=== PATIENT | male | born 1940 | race Caucasian/White ===

== ENCOUNTER 2020-04-05 15:18 | Outpatient (CLI) | payer MEDICARE, OTHER, SELFPAY ==
--- NOTE | ~2020-04-05 | CT_ITS ---
EXAMINATION: CT abdomen pelvis w con DATE: 04/05/2020 15:55 INDICATION: Malignant neoplasm of transverse colon. TECHNIQUE: Computed tomography (CT) of the abdomen and pelvis was performed with 100 mL of Omnipaque 350 intravenous contrast. Automated exposure control and iterative reconstruction technique were empl oyed. The dose-length product was 405.91 mGy-cm. COMPARISON: CT abdomen and pelvis 03/17/2018 FINDINGS: The visualized portions of the lung bases demonstrate mild atelectasis. No pleural effusion . Cardiomegaly is noted. There are changes of mitral valve replacement. There are calcifications of t he aortic valve and coronary arteries. No pericardial effusion. There is a 1.9 x 0.9 cm hyperenhancin g mass in segment VIII of the liver. The gallbladder, spleen, pancreas, and adrenal glands are normal . There are cysts in the kidneys measuring up to 7.1 cm on the left. The prostate is mildly enlarged. There are no dilated loops of bowel. There are changes of right hemicolectomy. There is a small slid ing hiatal hernia. There are no pathologically enlarged lymph nodes. There are bilateral inguinal her nias containing fat. There is no free intraperitoneal fluid. There is mild lumbar spondylosis. There are bridging endplate osteophytes at multiple levels in the thoracic spine, consistent with diffuse i diopathic skeletal hyperostosis (DISH). IMPRESSION: 1. No specific evidence of metastatic disease. 2. 1.9 x 0.9 cm hyperenhancing liver mass, increased in size from 1.1 x 0.7 cm on 03/17/18. This find ing is most likely focal nodular hyperplasia, hemangioma, or transient hepatic attenuation difference (DEVYN). Abdomen MRI without and with contrast is recommended. Reviewed, dictated and finalized at location A. ALS COLLECTOR/ANALYST IMPRESSION: 1. No specific evidence of metastatic disease. 2. 1.9 x 0.9 cm hyperenhancing liver mass, increased in size from 1.1 x 0.7 cm on 03/17/18. This finding is most likely focal nodular hyperplasia, hemangioma, or transient hepatic attenuation difference (DEVYN). Abdomen MRI without and wi th contrast is recommended.
== END 2020-04-05 15:19 | disposition home or self-care (01) ==
PROVIDERS: PCP Family Medicine; Visit Provider Internal Medicine Hematology & Oncology
DX: C18.9 Malignant neoplasm of colon, unspecified (principal); I25.10 Atherosclerotic heart disease of native coronary artery without angina pectoris; N28.1 Cyst of kidney, acquired; N40.0 Benign prostatic hyperplasia without lower urinary tract symptoms; K44.9 Diaphragmatic hernia without obstruction or gangrene; M47.816 Spondylosis without myelopathy or radiculopathy, lumbar region; K40.20 Bilateral inguinal hernia, without obstruction or gangrene, not specified as recurrent; I70.0 Atherosclerosis of aorta; R16.0 Hepatomegaly, not elsewhere classified
CPT/HCPCS: 74177; Q9967

== ENCOUNTER 2020-04-11 16:18 | Outpatient (CLI) | payer MEDICARE, OTHER, SELFPAY ==
--- NOTE | ~2020-04-11 | MR_ITS ---
EXAMINATION: MR abdomen wo/w con INDICATION: Indeterminate liver mass on recent CT TECHNIQUE: Coronal SSFSE ARC, WATER:coronal LAVA-FLEX, Coronal 2D FIESTA FatSat, Axial SSFSE BH ARC, Axial 3D DualEcho BH, Axial SSFSE-IR, Axial DWI b=500, Axial 2D FIESTA FatSat, pre and dynamic postco ntrast Axial LAVA ARC, postcontrast Coronal In and Opposed phase LAVA FLEX COMPARISON: CT, 04/05/2020 CONTRAST: Multihance, 15 cc FINDINGS: Many sequences are significantly limited by respiratory motion artifact, including postcont rast sequences. The enhancing lesion in liver segment VIII described on recent CT again appears to de monstrate arterial enhancement and remain isointense to liver on the remaining sequences. There is no associated restricted diffusion. The spleen, pancreas, gallbladder, and adrenal glands are normal. C ysts of the kidneys measure up to 8.1 cm on the left. There are no pathologically enlarged abdominal lymph nodes. No dilated loops of bowel are evident. IMPRESSION: 1. Enhancing lesion in liver segment VIII, likely focal nodular hyperplasia or hemangioma, examinatio n significantly limited by respiratory motion artifact. Reviewed, dictated and finalized at location A. CAL SALES ASSOCIATE IMPRESSION: 1. Enhancing lesion in liver segment VIII, likely focal nodular hyperplasia or hemangioma, examination significantly limited by respiratory motion artifact.
== END 2020-04-11 16:19 | disposition home or self-care (01) ==
PROVIDERS: PCP Family Medicine; Visit Provider Internal Medicine Hematology & Oncology
DX: K76.9 Liver disease, unspecified (principal)
CPT/HCPCS: 74183; A9577

== ENCOUNTER 2021-04-09 07:59 | Outpatient (CLI) | payer MEDICARE, SELFPAY ==
--- NOTE | ~2021-04-09 | CT_ITS ---
EXAMINATION: CT abdomen pelvis w con DATE: 04/09/2021 08:50 INDICATION: Malignant neoplasm of the transverse colon. TECHNIQUE: Computed tomography (CT) of the abdomen and pelvis was performed with 100 mL Omnipaque-350 intravenous contrast. Automated exposure control and iterative reconstruction technique were employe d. The dose-length product was 416.64 mGy-cm. COMPARISON: 04/05/2020 and 04/11/2020 FINDINGS: Minimal dependent atelectasis in the bilateral lower lobes. Cardiomegaly. Atherosclerotic coronary ar lacho calcific location. Median sternotomy wires and mitral valve repair. Aortic valve calcification. No pericardial or pleural effusion. Again seen is a subtle approximately 1 cm hyperenhancing focus in segment 8 of the liver was similar hyper enhancement on the earliest postcontrast image of the prior MRI but appearing isointense to the surrounding liver on the remaining sequences including the delay ed postcontrast images which be most consistent with either transient hepatic attenuation/intensity d ifference or focal nodular hyperplasia. No other hepatic lesions identified. Gallbladder, spleen, karimi creas and bilateral adrenal glands are normal. Bilateral renal cysts measuring up to 1.2 cm at the ri ght kidney and 9.3 cm the left kidney. Right hemicolectomy with ileocolic anastomosis in the left upp er quadrant along the distal transverse colon. No bowel obstruction. Bladder is unremarkable. Prostat omegaly. Small bilateral fat-containing inguinal hernias. No free intraperitoneal gas or fluid. No pa thologically enlarged abdominal or pelvic lymphadenopathy. There is calcified atherosclerosis of the aorta and many of the other arteries. Mild thoracolumbar spondylosis with bridging osteophytes at mul tiple levels in the lower thoracic spine, consistent with diffuse idiopathic skeletal hyperostosis (D PRESTON). IMPRESSION: 1. Unchanged small ill-defined hyperenhancing lesion in segment 8 of the liver with prior MRI finding s favoring either focal nodular hyperplasia or transient hepatic attenuation/intensity difference. 2. Status post right hemicolectomy with ileocolic anastomosis. No evident metastatic disease. Reviewed, dictated and finalized at location B. RAL AGENT IMPRESSION: 1. Unchanged small ill-defined hyperenhancing lesion in segment 8 of the liver with prior MRI findings favoring either focal nodular hyperplasia or transient hepatic attenuation/intensity difference. 2. Status post right hemicolectomy with ileocolic anastomosis. No evident metas tatic disease.
[2021-04-09 08:34] LABS: Estimated Glomerular Filt Rate > 60
== END 2021-04-09 08:00 | disposition home or self-care (01) ==
LOC: ANHIMG 08:06
PROVIDERS: PCP Family Medicine; Visit Provider Internal Medicine Hematology & Oncology
DX: C18.4 Malignant neoplasm of transverse colon (principal)
CPT/HCPCS: 74177; Q9967

== ENCOUNTER 2021-10-11 09:17 | Outpatient (CLI) | payer MEDICARE, SELFPAY ==
--- NOTE | 2021-10-11 09:21 | ECG_ITS ---
Measurements Intervals [place] Rate: 81 P: MA: 0 QRS: -6 QRSD: 90 T: 21 QT: 408 QTc: 476 Interpretive Statements ATRIAL FIBRILLATION ABNORMAL RHYTHM ECG NO PREVIOUS ECG AVAILABLE FOR COMPARISON Electronically Signed On 10-11-2021 20:34:32 CDT by Michaela Caruso M.D.
[2021-10-11 09:51] LABS: Basophils Absolute Auto 0.3 K/mm3 (0.0-0.1); Basophils Percent Auto 2.1 % (0.2-1.2); Eosinophils Absolute Auto 0.5 K/mm3 (0-0.3); Eosinophils Percent Auto 3.5 % (0-4.4); Hematocrit 46.4 % (42.0-52.0); Hemoglobin 14.1 g/dL (14.0-18.0); Immature Granulocyte Absolute 0.07 K/mm3 (0.00-0.031); Immature Granulocyte Percent A 0.5 % (0-0.5); Lymphocytes Absolute Auto 1.69 K/mm3 (0.9-3.2); Mean Corpuscular HGB Conc 30.4 g/dl (32-36); Mean Corpuscular Hemoglobin 22.5 pg (26-34); Mean Platelet Volume 10.5 fl (7.4-10.4); Monocytes Percent Auto 7.7 % (2.6-8.5); Neutrophils Absolute Auto 9.5 K/mm3 (1.3-6.7); Neutrophils Percent Auto 73.2 % (45.5-73.1); Platelet Count Result 522 k/mm3 (150-375); Red Blood Count 6.27 M/mm3 (4.6-6.20); Red Cell Distribution Width 19.5 % (11.5-14.5)
[2021-10-11 10:00] LABS: Anion Gap 10 mmol/L (8-16); Blood Urea Nitrogen 30 mg/dL (9-20); Calcium 9.3 mg/dL (8.4-10.2); Carbon Dioxide 23 mmol/L (22-30); Chloride 102 mmol/L (98-107); Estimated Glomerular Filt Rate 58; Glucose 95 mg/dL (65-110); Potassium 4.8 mmol/L (3.4-5.0); Sodium 135 mmol/L (137-145)
== END 2021-10-11 09:18 | disposition home or self-care (01) ==
LOC: ANHSURGERY 09:21
PROVIDERS: PCP Family Medicine; Visit Provider Surgery
DX: K62.1 Rectal polyp (principal); I10 Essential (primary) hypertension; Z01.818 Encounter for other preprocedural examination; I48.91 Unspecified atrial fibrillation
CPT/HCPCS: 36415; 80048; 85025; 93005

== ENCOUNTER 2021-10-18 13:52 | Inpatient (IN) | payer MEDICARE, SELFPAY ==
[2021-10-09 13:21] VITALS: BMI 23.8
--- NOTE | 2021-10-09 13:44 | PC.NURSE ---
Report to the Outpatient Waiting Room, entrance under the green pavilion located off [facility], at time _1030_ on date __10/17/21 . OR Time: _1230_. - You and your visitor will be asked a series of questions to screen for COVID 19 for your protection. - Only one visitor is allowed at this time. - The patient visitor is requested to leave or wait in car when not with patient. - A mask is required within the hospital. Patients may have clear liquids (water, carbonated beverages, clear teas, apple juice) until 3 hours prior to surgery (0930 AM) with a maximum of 20 ounces. - No food from midnight until time of surgery Take the following medications with a SIP of water the morning of surgery: _AMLODIPINE, DONEPEZIL, MEMANTINE, METOPROLOL_ Medications to discontinue per DR. VAHID ABERNATHY 2 DAYS PRIOR TO SURGERY, Date to take last dose 10/14/21_ Please no make-up, nail arabic, hairspray, perfume, deodorant, or body powder the day of surgery. No jewelry (including any body piercings) or valuables the day of surgery, leave them at home. Please take a shower or bath the night before, or the morning of, surgery with an antibacterial soap. Wear comfortable, loose fitting clothing. - Jewelry must be removed prior to entering the operating room. Rings and piercings that are not removed may be cut off. - The hospital will not accept responsibility for valuables. - Please leave all valuables, including medications, at home the day of surgery. If you are going home after surgery, a licensed emergency detail driver must drive you home. - NO public transportation without another adult. - We recommend that an adult stay with you for 24 hours following discharge. - We also recommend that you do not drive, make important decision, drink alcoholic beverages, or take any drugs that were not prescribed by your health care provider for at least 24 hours after your discharge time. Follow any additional instructions given to you from your surgeon. FLEETS ENEMA NIGHT BEFORE AND AM OF SURGERY, IF NOT TOO PAINFUL, DULCOLAX 5GM TAB NIGHT BEFORE SURGERY - CALL DR. THAPA OFFICE TO CONFIRM [phone] If you or anyone in your household have experienced Covid symptoms in the past week, please notify your surgeon or the nurse liaison at the phone number below for possible testing. Telephone instructions given to _PT'S SPOUSE - KASI___and asked if any additional questions and then verbalized understanding. Patient advised to call surgeon office or pre surgery nurse liaison [phone] if any additional questions.
--- NOTE | 2021-10-16 09:30 | WPDANESEPPF ---
Anes - Initial Pre Proc Eval Procedure: Operation Date: 10/17/21 08:00 Proposed Procedures p Transanal Excision of Rectal Polyp - Anirudh Wilson MD <Franklyn Bacon DO - Last Filed: 10/25/21 09:05> Date/Time: 10/16/21 09:30 <Franklyn Bacon DO - Last Filed: 10/25/21 09:05> Surgeon: Anirudh Wilson MD <Franklyn Bacon DO - Last Filed: 10/25/21 09:05> Pre Op Diagnosis: rectal polyp <Franklyn Bacon DO - Last Filed: 10/25/21 09:05> Patient Data Age: 81 Gender: M Height: 1.7 m Weight: 69.09 kg <Franklyn Bacon DO - Last Filed: 10/25/21 09:05> Allergies Allergy/AdvReac Type Severity Reaction Status Date / Time No Known Allergies Allergy Verified 10/23/21 19:41 <Franklyn Bacon DO - Last Filed: 10/25/21 09:05> Home Medications Medication Instructions Recorded Confirmed Type apixaban 5 mg tablet (Eliquis) 5 mg PO BID 09/26/21 10/23/21 History aspirin 81 mg tablet,delayed 81 mg PO HS 09/26/21 10/23/21 History release (Adult Low Dose Aspirin) cholestyramine (with sugar) 4 gram See Rx Instructions .Route .COMPLEX 09/26/21 10/23/21 History oral powder cyanocobalamin (vitamin B-12) 1,000 mcg PO BID 09/26/21 10/23/21 History 1,000 mcg capsule donepezil 10 mg tablet 10 mg PO QAM 09/26/21 10/23/21 History metoprolol tartrate 50 mg tablet 50 mg PO BID 09/26/21 10/23/21 History pravastatin 40 mg tablet 40 mg PO HS 09/26/21 10/23/21 History memantine 10 mg tablet 10 mg PO BID 10/09/21 10/23/21 History diltiazem HCl 180 mg 180 mg PO QAM #30 caps 10/20/21 10/23/21 Rx capsule,extended release 24 hr, controlled hydrocodone 5 mg-acetaminophen 325 1 tablet PO Q6H PRN pain #20 tabs 10/20/21 10/23/21 Rx mg tablet lisinopril 20 mg tablet 20 mg PO QAM 10/20/21 10/23/21 Rx amlodipine 5 mg tablet 1 tablet PO BID 10/23/21 10/23/21 History <Franklyn Bacon DO - Last Filed: 10/25/21 09:05> ECG: Date of Service: 10/11/21 Procedure(s): CA 12 lead EKG Accession Number(s): [id number] cc: ~ ? Measurements Intervals? [place]? Rate: ? 81 ? P:? [place]: ? 0? QRS:? -6 QRSD: ? 90 ? T:? 21 QT: ? 408? QTc:? 476? Interpretive Statements ATRIAL FIBRILLATION ABNORMAL RHYTHM ECG NO PREVIOUS ECG AVAILABLE FOR COMPARISON Electronically Signed On 10-11-2021 20:34:32 CDT by Michaela Caruso M.D. <Mane Montes MD - Last Filed: 10/17/21 07:15> Patient hx anesthesia problems: none <Franklyn Bacon DO - Last Filed: 10/25/21 09:05> Family hx anesthesia problems: none <Franklyn Bacon DO - Last Filed: 10/25/21 09:05> Results Review: All pre-operative results and documents have been reviewed as part of the pre-operative evaluation. 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
[2021-10-17] VITALS (18 sets, daily range): BP systolic 91–126; BP diastolic 60–87; PULSE 76–129; RESP 10–20; TEMP 35.6–36.6; O2SAT 93–100
--- NOTE | 2021-10-17 08:24 | WPDHPUPDATE1 ---
History and Physical Update Update Date/Time: 10/17/21 08:24 History and Physical has been reviewed, including an updated exam of the patient. There are NO changes in the patient's condition. Risks, benefits, and alternatives have been discussed and questions answered. Patient agrees to proceed with procedure.
[2021-10-17] MEDS: LACTATED RINGERS 1,000 ML 30 ML IV CONT ×2 (11:10→14:09)
[2021-10-17] MEDS: ACETAMINOPHEN 500 MG TABLET 1000 MG PO (11:14)
[2021-10-17] MEDS: KETOROLAC 15 MG/ML VIAL (*BKC) IV PUSH (11:14)
[2021-10-17] MEDS: ceFAZolin 2 GM/D5W 50 ML 2 GM/50 ML BAG IVPB (12:20)
[2021-10-17] MEDS: LIDO 1%/EPINEPHRINE/PF 1:200,000 30 ML VIAL 60 ML XX (13:47)
[2021-10-17] MEDS: ESMOLOL HCL 100 MG/10 ML VIAL 30 MG IV PUSH (14:03)
--- NOTE | 2021-10-17 14:25 | W.PM.PROC2 ---
Procedure Note - Detailed Date of Procedure 10/17/21 Pre-op Diagnosis rectal polyp Post-op Diagnosis Same Procedure Performed Transanal excision of large rectal polyp Surgeon Anirudh Wilson MD Sexual Assault Counsellor Deyanira EVANGELISTA Anesthesia General and Local (1% lidocaine with epinephrine) Indications Patient is an 81-year-old man with dementia and cardiac disease. Had a recent colonoscopy he was found to have a distal rectal polyp that was associated with internal hemorrhoids. It was unable to be excised colonoscopically. He was seen in the office and on exam found to have a left lateral polyp. Biopsies at colonoscopy showed an adenomatous polyp. He is taken to surgery now for transanal excision. Findings The polyp was considerably bigger than I appreciated at the office visit. It occupied about a 3rd of the rectal circumference and extended cephalad about 7 cm. The polyp was excised in 2 pieces. Proctosigmoidoscopy was done at the conclusion of the procedure and showed the excision to extend to 7 cm. Proctosigmoidoscopy to over 20 cm was otherwise negative. Description of Procedure Patient was taken to surgery and induced into general anesthesia. He was then placed in prone ailyn-knife position. The buttocks were taped apart. Prep and drape was carried out. Hill-[place] anoscope was introduced into the rectum and the area of the polyp in the left lateral position as expected was noted. It appeared to be adequate for excision. I infiltrated local anesthetic using 1% lidocaine with epinephrine. 20 cc deep subdermal and 20 cc intra sphincteric were administered. Internal hemorrhoids were near the polyp as described in the colonoscopy. On beginning the excision, a 3-0 chromic suture was placed at the distal extent of the polyp. I proceeded with excising the polyp retracting the polyp with hemorrhoidal graspers to expose normal mucosa. I excised through the level of the mucosa taking little or no muscle and continued the excision. Eventually I excised this area of the polyp. On looking back in the rectum, it now appeared that there was a more proximal portion of the polyp that also extended farther to the left around the circumference of the rectum. I retracted this portion of the polyp and placed another suture at the proximal extent. This was also 3-0 chromic. Who with traction on the polyp towards the lumen of rectum, a submucosal plane was established with the cautery and the remainder of the polyp was carefully dissected from the rectum. It appeared we removed the entire polyp. I placed 1 or 2 additional suture to control some venous bleeding. Further reviewing the rectum, it did not appear that I could safely close the mucosa from the polypectomy without risk of stricture. I removed the chromic suture and reach checked for bleeding. There was none. I then used a rigid proctoscope and placed this in the rectum. Insufflating with air I carefully advanced the proctoscope to its full extent of over 20 cm. Some liquid stool was noted in the upper rectum. This was suctioned away. I then carefully withdrew the proctoscope. The excision appeared to extend to 7 cm in the rectum. I reviewed the area of the excision and saw no sign of perirectal fat or other untoward event. The proctoscope was eventually completely withdrawn. It appeared the entire polyp had been removed. I again looked with a Francis-Moshe anoscope and saw no sign of rectal bleeding. A Xeroform gauze 5 in x 9 in was placed over the rectum as well as fluffs. This was taped with Medipore tape. The patient was returned to a supine position. He was awakened and extubated. He was transferred to recovery in good condition. Sponge and needle counts were correct x2. Estimated Blood Loss -50.0 Drains No Packing No Pathology Yes (Rectal polyp) Complications No immediate complications Condition Stable Disposition PACU [facility] Billing Surgery - Charge Forward: Surgery Billing ([facility]
[2021-10-17] MEDS: METOPROLOL TARTRATE INJ 5 MG/5 ML VIAL 2 MG IV PUSH (14:40)
--- NOTE | 2021-10-17 16:06 | PC.NURSE ---
This patient, Erik Davis, was admitted to Medical Room 254-01. Patient/family oriented to hospital policies and general routines including ID bracelet, bed and alarms, visiting hours, pain management, procedures, bathroom and other care routines, personal items, smoking policy, room service/diet, and visiting hours. Information on how to activate the Rapid Response Team has been discussed. Patient/Family are encouraged to report perceived risks to care and to ask questions if they do not understand what they are told or what they should do.
[2021-10-17] MEDS: MINERAL OIL 30 ML UDC 15 ML PO (17:19)
[2021-10-17] MEDS: MEMANTINE 10 MG TABLET PO (17:20)
[2021-10-17] MEDS: CYANOCOBALAMIN 1,000 MCG TABLET 1000 MCG PO (17:20)
[2021-10-17] MEDS: HYDROcodone/acetaminophen (*CRX) 5-325 MG TABLET 1 TAB PO (17:36)
[2021-10-17] MEDS: ASPIRIN 81 MG ENTERIC TABLET PO (20:12)
[2021-10-17] MEDS: METOPROLOL TARTRATE 50 MG TAB PO (20:12)
[2021-10-17] MEDS: PRAVASTATIN SODIUM 20 MG TABLET 40 MG PO (20:12)
[2021-10-17] MEDS: fentaNYL CITRATE INJ (*CRX) 100 MCG/2 ML VIAL 25 MCG IV PUSH (20:18)
[2021-10-18] VITALS (11 sets, daily range): BP systolic 86–110; BP diastolic 52–66; PULSE 62–110; RESP 16–18; TEMP 36.5–36.9; O2SAT 95–98; BMI 21.1
[2021-10-18] MEDS: DEXTROSE 5%/LACTATED RINGERS 1,000 ML 80 ML IV CONT ×2 (00:21→16:13)
[2021-10-18 05:37] LABS: Hematocrit 40.4 % (42.0-52.0); Mean Corpuscular HGB Conc 29.7 g/dl (32-36); Mean Corpuscular Hemoglobin 22.3 pg (26-34); Mean Platelet Volume 10.7 fl (7.4-10.4); Platelet Count Result 450 k/mm3 (150-375); Red Blood Count 5.39 M/mm3 (4.6-6.20); Red Cell Distribution Width 18.9 % (11.5-14.5); White Blood Count 20.6 K/mm3 (4.5-10.0)
[2021-10-18 05:47] LABS: Anion Gap 7 mmol/L (8-16); Blood Urea Nitrogen 27 mg/dL (9-20); Calcium 8.4 mg/dL (8.4-10.2); Carbon Dioxide 24 mmol/L (22-30); Chloride 102 mmol/L (98-107); Estimated CRCL calculation 35 ml/min; Estimated Glomerular Filt Rate 53; Glucose 121 mg/dL (65-110); Sodium 133 mmol/L (137-145)
--- NOTE | 2021-10-18 07:41 | PM.IMCN ---
Assessment and Plan Assessment and plan (1) History of coronary artery bypass graft: Code(s): Z95.1 - Presence of aortocoronary bypass graft Status: Acute Assessment and Plan: -stable (2) Hypertension: Code(s): I10 - Essential (primary) hypertension Status: Acute Assessment and Plan: --medications currently on hold due to the patient's blood pressure being 86/54, will administer 500 cc normal saline bolus. (3) FDC current use of anticoagulant: Code(s): Z79.01 - terminal carman (current) use of anticoagulants Status: Acute Assessment and Plan: defer anticoagulation to Surgery , hold anticoagulation for now (4) Rectal polyp: Code(s): K62.1 - Rectal polyp Status: Acute Assessment and Plan: Rectal polyp was excised Continue to monitor, currently is are from gauze 5 in by 9 in and she is placed over the rectum Patient reports significant amount of blood per rectum this morning. Will obtain a stat H&H. (5) Cancer of transverse colon: Code(s): C18.4 - Malignant neoplasm of transverse colon Status: Acute Assessment and Plan: 2/ above (6) Chronic atrial fibrillation: Code(s): I48.20 - Chronic atrial fibrillation, unspecified Status: Acute Assessment and Plan: Continue home medications Defer anticoagulation therapy to surgery after her surgical intervention for a rectal polyp removal Additional Plan Hold anticoagulation such as Lovenox and apixaban. Place patient on SCDs for DVT prophylaxis. HPI Data of Consult Consult date: 10/18/21 Requesting Physician: Anirudh Wilson MD Primary Care Provider: Radha Suarez MD Consult Narrative Narrative: Erik Davis is a 81 year old male with a past medical history paroxysmal AFib, hypertension, CABG with mitral valve replacement and hyperlipidemia. Patient recently had a colonoscopy which showed some transverse colon cancer. Biopsies confirmed. Patient had a polyp that was unable to be excised colonoscopy. He was examined in gastroenterology office and was found to have a left lateral Brnadie. Patient was therefore suggested have surgery for a transanal excision. While in surgery the polyp was considerably larger. Hospitalist service was consulted due to the patient's comorbidities for medical management. Patient was hypotensive this morning his antihypertensives were held. Eliquis is currently on hold. Hold his Lovenox. Patient reported significant amount of bright red blood per rectum this morning. Although the patient does have rectal surgery. Will obtain a stat H&H to the patient's decreasing hemoglobin, decreasing blood pressure and mild tachycardia. Patient will receive 500 cc of normal saline as well. Review of Systems Review of Systems: General: No acute distress. Mental Status: Awake, alert and oriented to person, place, and time with clear speech. Skin: Skin in warm, dry and intact without rashes or lesions. Head: Normocephalic and atraumatic. Eyes: Conjunctivae are clear without exudates or hemorrhage. Sclera is non-icteric. EOM are intact, PERRLA. Ears: The external ear and canal are non-tender and without swelling or discharge. Nose: Nasal mucosa is pink and moist. Septum midline. Nares patent bilaterally. Throat: Oral mucosa pink and moist with good dentition. Tongue midline. Neck: The neck supple without adenopathy. Trachea midline. No JVD. Cardiac: S1 and S2 regular rate and rhythm. No murmurs, gallops, or rubs auscultated. Respiratory: Chest wall symmetric, nontender and without deformity or trauma. Respirations even and unlabored. Lung sounds are clear to auscultation in all lobes bilaterally without wheezes, rhonchi, or rales. Abdominal: Abdomen soft, round and non-tender to palpation. Bowel sounds present and normoactive in all 4 quadrants. Spine: Neck and back with grossly normal curvature, no deformity in appearance or signs of trauma. E
[2021-10-18] MEDS: DONEPEZIL HCL 10 MG TABLET PO (08:40)
[2021-10-18] MEDS: ENOXAPARIN 40 MG/0.4 ML SYRINGE SUB-Q (08:40)
[2021-10-18] MEDS: MINERAL OIL 30 ML UDC 15 ML PO ×2 (08:40→16:14)
[2021-10-18] MEDS: CYANOCOBALAMIN 1,000 MCG TABLET 1000 MCG PO ×2 (08:40→16:14)
[2021-10-18] MEDS: MEMANTINE 10 MG TABLET PO ×2 (08:40→16:14)
[2021-10-18 09:23] LABS: Hematocrit 38.8 % (42.0-52.0); Hemoglobin 11.9 g/dL (14.0-18.0)
[2021-10-18] MEDS: SODIUM CHLORIDE 0.9% IV 500 ML IV CONT (09:24)
--- NOTE | 2021-10-18 09:29 | PM.PNGS ---
Progress Note: A&P Assessment and Plan (1) Rectal polyp: Code(s): K62.1 - Rectal polyp Status: Acute Assessment and Plan: Found to have a large rectal polyp yesterday during surgery that was excised. He has been admitted post-operatively to monitor. He has had some bloody BMs overnight, which seems to be improving. Blood pressure was low this morning. BP meds were held and he was given 500 cc IV fluid bolus. H/H rechecked and remains stable at 11.9. Continue to closely monitor. Repeat labs tomorrow. 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 (4) Hypertension: Code(s): I10 - Essential (primary) hypertension Status: Acute Plan I have discussed the patient's case and plan of care with Dr. Wilson. Subjective Subjective Date/Time Seen: 10/18/21 09:29 Post Op day: 1 (Transanal excision of large rectal polyp) Patient reports: pain is less, tolerating liquids well, flatus, bowel movement (bloody BM last night and one this morning) and afebrile Interval history: Patient seen and examined. He reports having a bloody BM this morning right before I entered the room. No nausea or vomiting. Still with rectal pain but reportedly better than yesterday. Exam Const: General: comfortable and no acute distress Orientation/consciousness: patient oriented x3 GI: Inspection: non-distended GI Palp: Yes Soft to palpation, No Tenderness to palpation present (GI) and No Rebound tenderness present Rectal Exam: visual inspection normal (minimal serosanguineous drainage on dressing) Skin: General skin exam: normal color Neuro: General: moves all extremities and no focal motor deficits Extrem: General: no calf tenderness and no edema Psych: Insight: Fair insight present (Psych) Judgement: Fair judgement present (Psych) Objective Data Vital Signs Vital Signs: Vital Signs - 24 hr 10/17/21 11:31 10/17/21 13:55 10/17/21 14:10 Temperature 97.6 F 97.4 F L Pulse Rate 99 128 H 117 H Respiratory Rate 16 12 12 Blood Pressure 111/78 104/83 103/87 Pulse Oximetry 99 100 100 Oxygen Delivery Room Air Simple Face Mask Simple Face Mask Oxygen Flow Rate 8 8 10/17/21 14:25 10/17/21 14:40 10/17/21 14:55 Temperature Pulse Rate 109 H 106 H 109 H Respiratory Rate 16 13 10 L Blood Pressure 91/78 L 97/63 L 108/60 Pulse Oximetry 100 98 99 Oxygen Delivery Simple Face Mask Room Air Room Air Oxygen Flow Rate 8 10/17/21 15:10 10/17/21 15:30 10/17/21 16:10 Temperature 96.3 F L Pulse Rate 105 H 105 H 91 Respiratory Rate 15 20 16 Blood Pressure 106/78 101/71 96/73 L Pulse Oximetry 99 100 93 Oxygen Delivery Room Air Room Air Oxygen Flow Rate 10/17/21 16:19 10/17/21 16:53 10/17/21 17:16 Temperature 96.3 F L 96.1 F L Pulse Rate 94 76 126 H Respiratory Rate 16 16 Blood Pressure 120/74 110/74 Pulse Oximetry 99 96 Oxygen Delivery Oxygen Flow Rate 10/17/21 17:41 10/17/21 17:57 10/17/21 19:57 Temperature 96.7 F L 97.6 F Pulse Rate 102 H 100 107 H Respiratory Rate 16 18 Blood Pressure 126/68 109/61 Pulse Oximetry 99 96 Oxygen Delivery Oxygen Flow Rate 10/17/21 20:12 10/17/21 20:00 10/17/21 23:44 Temperature 97.8 F Pulse Rate 129 H 128 H 118 H Respiratory Rate 18 Blood Pressure 100/70 Pulse Oximetry 96 Oxygen Delivery Oxygen Flow Rate 10/18/21 00:00 10/18/21 04:00 10/18/21 06:44 Temperature 98.5 F Pulse Rate 94 103 H 86 Respiratory Rate 18 Blood Pressure 99/52 L Pulse Oximetry 98 Oxygen Delivery Oxygen Flow Rate 10/18/21 08:42 Temperature Pulse Rate Respiratory Rate Blood Pressure 86/54 L Pulse Oximetry Oxygen Delivery Oxygen Flow Rate Intake/Output
[2021-10-18] MEDS: ASPIRIN 81 MG ENTERIC TABLET PO (20:39)
[2021-10-18] MEDS: PRAVASTATIN SODIUM 20 MG TABLET 40 MG PO (20:39)
[2021-10-18] MEDS: CHOLESTYRAMINE (W/ SUGAR) 4 GM POWD.PACK PO (20:40)
[2021-10-19] VITALS (15 sets, daily range): BP systolic 98–133; BP diastolic 53–75; PULSE 79–167; RESP 14–18; TEMP 36.4–37.6; O2SAT 95–97
[2021-10-19 05:50] LABS: Hematocrit 34.7 % (42.0-52.0); Hemoglobin 10.3 g/dL (14.0-18.0); Mean Corpuscular HGB Conc 29.7 g/dl (32-36); Mean Corpuscular Hemoglobin 22.2 pg (26-34); Mean Corpuscular Volume 74.6 fl (80-100); Mean Platelet Volume 11.3 fl (7.4-10.4); Platelet Count Result 364 k/mm3 (150-375); Red Blood Count 4.65 M/mm3 (4.6-6.20); Red Cell Distribution Width 18.1 % (11.5-14.5); White Blood Count 16.3 K/mm3 (4.5-10.0)
[2021-10-19 06:04] LABS: Anion Gap 2 mmol/L (8-16); Blood Urea Nitrogen 24 mg/dL (9-20); Calcium 7.8 mg/dL (8.4-10.2); Carbon Dioxide 26 mmol/L (22-30); Chloride 103 mmol/L (98-107); Estimated CRCL calculation 44 ml/min; Estimated Glomerular Filt Rate > 60; Glucose 125 mg/dL (65-110); Potassium 3.9 mmol/L (3.4-5.0); Sodium 131 mmol/L (137-145)
[2021-10-19] MEDS: DEXTROSE 5%/LACTATED RINGERS 1,000 ML 80 ML IV CONT ×2 (06:28→20:44)
--- NOTE | 2021-10-19 06:44 | PM.IMCN ---
Assessment and Plan Assessment and plan (1) History of coronary artery bypass graft: Code(s): Z95.1 - Presence of aortocoronary bypass graft Status: Acute Assessment and Plan: -stable (2) Hypertension: Code(s): I10 - Essential (primary) hypertension Status: Acute Assessment and Plan: --medications currently on hold due to the patient's blood pressure being 86/54, will administer 500 cc normal saline bolus. (3) longterm current use of anticoagulant: Code(s): Z79.01 - termite treater (current) use of anticoagulants Status: Acute Assessment and Plan: defer anticoagulation to Surgery , hold anticoagulation for now (4) Rectal polyp: Code(s): K62.1 - Rectal polyp Status: Acute Assessment and Plan: Rectal polyp was excised Continue to monitor, currently is are from gauze 5 in by 9 in and she is placed over the rectum Patient reports significant amount of blood per rectum this morning. Hemoglobin hematocrit down turning, continue to monitor and hold anticoagulation Stat H&H, patient had a liquid bowel movement while I was in the room, hemoglobin does appear to be down trending (5) Cancer of transverse colon: Code(s): C18.4 - Malignant neoplasm of transverse colon Status: Acute Assessment and Plan: 2/2 above (6) Chronic atrial fibrillation: Code(s): I48.20 - Chronic atrial fibrillation, unspecified Status: Acute Assessment and Plan: Continue home medications Patient tachycardic this morning with heart rate 140s -150s at rest. Patient has p.r.n. metoprolol q.6 hours 5 mg to be administered for heart rate sustained of 120. Medication was not administered during the night. Consult cardiology for further recommendations, appreciate assistance Transfer patient to IMU Antihypertensives held due to hypotension Defer anticoagulation therapy to surgery after her surgical intervention for a rectal polyp removal Additional Plan Hold anticoagulation such as Lovenox and apixaban. Place patient on SCDs for DVT prophylaxis. HPI Data of Consult Consult date: 10/19/21 Requesting Physician: Anirudh Wilson MD Primary Care Provider: Radha Suarez MD Consult Narrative Reason for consult: Comorbidities Narrative: Erik Davis is a 81 year old male who was evaluated this morning. Upon arrival to the floor the patient was tachycardic at rest lying in bed with a heart rate 140s, 50s he denied any palpitations, dizziness, diaphoresis. The patient does have p.r.n. metoprolol to be administered if heart rate sustained greater than 120, this was not done. Requested the RN to push the IV medication at bedside. Patient's blood pressure 98/56. Hold antihypertensive and administer 500 cc bolus. Stat H&H. Consulted cardiology for further management, transfer patient to IMU, and called to notify General surgery about the patient's condition. Review of Systems Review of Systems: All systems reviewed & are unremarkable except as noted in HPI and below PMFSH Past Medical History Medical History (Updated 10/16/21 @ 09:31 by Franklyn Bacon, ) Cancer of transverse colon Chronic atrial fibrillation Dementia Heart murmur High cholesterol Hypertension longterm current use of anticoagulant Mucous adenocarcinoma Seizures Surgical History Surgical History (Updated 10/04/21 @ 10:21 by Liss Montes) History of brain surgery History of colon surgery History of coronary artery bypass graft Hx of mitral valve replacement Family History Family History Mother Family history of malignant neoplasm of ovary Father Heart disease Heart attack Other Family history of coronary artery disease Hypertension Social History Social History Smoking packs per day: 1 Smoking cigarettes per day: 20.0 Years s
[2021-10-19] MEDS: METOPROLOL TARTRATE INJ 5 MG/5 ML VIAL IV PUSH (08:44)
[2021-10-19] MEDS: MINERAL OIL 30 ML UDC 15 ML PO ×2 (08:45→16:17)
[2021-10-19] MEDS: DONEPEZIL HCL 10 MG TABLET PO (08:45)
[2021-10-19] MEDS: MEMANTINE 10 MG TABLET PO ×2 (08:45→16:17)
[2021-10-19] MEDS: CYANOCOBALAMIN 1,000 MCG TABLET 1000 MCG PO ×2 (08:45→16:17)
--- NOTE | 2021-10-19 08:45 | ECG_ITS ---
Measurements Intervals [place] Rate: 106 P: NV: 0 QRS: 9 QRSD: 84 T: 36 QT: 336 QTc: 447 Interpretive Statements ATRIAL FIBRILLATION WITH RAPID VENTRICULAR RESPONSE NONSPECIFIC ST & T-WAVE ABNORMALITY ABNORMAL RHYTHM ECG COMPARED TO ECG 10/11/2021 09:39:58 T-WAVE ABNORMALITY NOW PRESENT AND HEART RATE INCREASED Electronically Signed On 10-19-2021 14:39:34 CDT by Lewis Rutledge M.D.
--- NOTE | 2021-10-19 08:58 | ECHO_ITS ---
Patient Info Name: Erik Davis Age: 81 years : 1940 Gender: Male Ht: 67 in Wt: 134 lbs BSA: 1.69 m2 HR: 112 bpm BP: 98 / 56 mmHg Heart Rhythm: Atrial Fibrillation Technical Quality: Good Exam Date: 10/19/2021 4:10 PM Exam Location: [facility]am Room: 231 Patient Status: Inpatient Admit Date: 10/19/2021 Staff Ordering Physician: Bebe Diggs APRN Software Trainer: Janet Sandhu RDCS Attending Provider: Anirudh Wilson MD Referring Physician: Dontae CHAVEZ; Exam Type: CA echo doppler color flow Study Info Indications - SOB HX/O AFIB CAD MVR Complete two-dimensional, color flow and Doppler transthoracic echocardiogram is performed. Summary 1. Left ventricular chamber dimension is normal. 2. Left ventricular systolic function is lower limits of normal, estimated at 50-55%. 3. There is mildly increased left ventricular wall thickness. 4. Left ventricular septal wall motion is abnormal with septal motion related to a post-operative state. 5. The left ventricular diastolic function is indeterminate. 6. Left atrial chamber dimension is severely enlarged. 7. Mitral valve annuloplasty ring present with mild leaflet thickening. 8. There is mild stenosis of the annuloplasty ring prosthetic mitral valve. 9. There is mild regurgitation of the annuloplasty ring prosthetic mitral valve. 10. There is mild tricuspid valve regurgitation. 11. Mild pulmonary hypertension, estimated pulmonary arterial systolic pressure is 41 mmHg. 12. There is mild aortic valve stenosis with a peak velocity of 252 cm/s, mean gradient of 16 mmHg, and aortic valve area of 1.6 cm2. 13. There is mild aortic valve regurgitation. Left Ventricle Left ventricular chamber dimension is normal. Left ventricular systolic function is lower limits of normal, estimated at 50-55%. There is mildly increased left ventricular wall thickness. Left ventricular septal wall motion is abnormal with septal motion related to a post-operative state. The left ventricular diastolic function is indeterminate. Right Ventricle Right ventricular chamber dimension is normal. Right ventricular systolic function is normal. Left Atria Left atrial chamber dimension is severely enlarged. Right Atria Right atrial chamber dimension is moderately enlarged. Aortic Valve The aortic valve is probable trileaflet. There is mild aortic valve stenosis with a peak velocity of 252 cm/s, mean gradient of 16 mmHg, and aortic valve area of 1.6 cm2. There is mild aortic valve regurgitation. There is mild aortic valve calcification. Pulmonic Valve The pulmonic valve is normal. There is trace pulmonic regurgitation. Mitral Valve Mitral valve annuloplasty ring present with mild leaflet thickening. There is mild stenosis of the annuloplasty ring prosthetic mitral valve. There is mild regurgitation of the annuloplasty ring prosthetic mitral valve. Tricuspid Valve The tricuspid valve leaflets are normal. There is mild tricuspid valve regurgitation. Mild pulmonary hypertension, estimated pulmonary arterial systolic pressure is 41 mmHg. Pericardium/Pleural The pericardium appears normal. There is no pericardial effusion. Inferior Vena Cava Normal inferior vena cava with >50% collapse upon inspiration consistent with normal right atrial pressure, 5 mmHg. Aorta The aortic root size at the sinus of Valsalva is normal. There is mild-moderate aortic atherosclerosis. Left Ventricular Outfl
[2021-10-19] MEDS: SODIUM CHLORIDE 0.9% IV 500 ML IV CONT (09:04)
[2021-10-19 09:26] LABS: Hematocrit 35.3 % (42.0-52.0); Hemoglobin 10.7 g/dL (14.0-18.0)
--- NOTE | 2021-10-19 10:15 | PC.NURSE ---
This patient, Erik Davis, was transferred to IMU on 10/19/21 at 1015. Personal belongings sent with patient. Report given to KANDACE Conner. Appropriate documentation sent with patient.
--- NOTE | 2021-10-19 10:15 | PC.NURSE ---
This patient, Erik Davis, was received from [[phone] ] on 10/19/21 at 1015. Patient/family oriented to unit policies and routines. Report received from KANDACE Urena @[id number]
--- NOTE | 2021-10-19 10:37 | PM.PNGS ---
Progress Note: A&P Assessment and Plan (1) Rectal polyp: Code(s): K62.1 - Rectal polyp Status: Acute Assessment and Plan: status post excision large rectal polyp. Appears to have some old blood coming from the rectum. Patient being transferred to IMU due to rapid atrial fibrillation and blood pressure in the 90s. Discussed with the hospitalist radha Diggs. (2) Postoperative anemia due to acute blood loss: Code(s): D62 - Acute posthemorrhagic anemia Status: Acute Assessment and Plan: H&H drifting down. With no bright red blood per rectum, I do not feel he is having rectal bleeding. Probably did have some after surgery. Some of the anemia is dilutional. (3) Chronic atrial fibrillation: Code(s): I48.20 - Chronic atrial fibrillation, unspecified Status: Acute Assessment and Plan: Being transferred to IMU. Blood pressure in the 90s to 100. Cardiology being consulted. Subjective Subjective Date/Time Seen: 10/19/21 10:37 Post Op day: 2 Patient reports: feels better ( Less rectal pain than yesterday.), pain is less ( some pain right lower quadrant abdomen), bowel movement ( Nursing reports old blood per rectum, no bright red blood) and afebrile Review of Systems Review of Systems: All systems reviewed & are unremarkable except as noted in HPI and below ( HPI) Constitutional: Constitutional: Denies chills, Denies fever(s), Denies night sweats and Reports poor appetite Gastrointestinal: Gastrointestinal: Reports as per HPI and Reports abdominal pain ( right lower quadrant) Exam Const: General: cooperative, comfortable, alert and awake GI: Inspection: non-distended and scaphoid GI Palp: Yes Tenderness to palpation present (GI) ( right lower quadrant), No Guarding due to palpation present (GI) and No Rebound tenderness present Auscultation: normal bowel sounds Rectal Exam: tenderness ( still very tender. No ecchymosis or hematoma noted) Objective Data Vital Signs Vital Signs: Vital Signs - 24 hr 10/18/21 11:01 10/18/21 12:00 10/18/21 16:00 Temperature Pulse Rate 62 Respiratory Rate Blood Pressure 100/66 110/58 L Pulse Oximetry Oxygen Delivery 10/18/21 16:00 10/18/21 20:12 10/18/21 20:38 Temperature 36.5 C Pulse Rate 103 H 108 H 106 H Respiratory Rate 16 Blood Pressure 98/55 L Pulse Oximetry 95 Oxygen Delivery 10/18/21 20:00 10/18/21 20:00 10/19/21 00:00 Temperature Pulse Rate 110 H 118 H Respiratory Rate Blood Pressure Pulse Oximetry Oxygen Delivery Room Air 10/19/21 00:55 10/19/21 04:00 10/19/21 06:25 Temperature 36.6 C 36.4 C Pulse Rate 100 111 H 117 H Respiratory Rate 16 14 Blood Pressure 98/53 L 105/67 Pulse Oximetry 97 96 Oxygen Delivery 10/19/21 08:17 10/19/21 08:44 10/19/21 08:54 Temperature Pulse Rate 145 H Respiratory Rate Blood Pressure 98/56 L Pulse Oximetry Oxygen Delivery Room Air 10/19/21 08:00 Temperature Pulse Rate 167 H Respiratory Rate Blood Pressure Pulse Oximetry Oxygen Delivery Intake/Output Intake/Output: Intake & Output 10/16/21 10/17/21 10/18/21 10/19/21 23:59 23:59 23:59 23:59 Intake Total 2049 2019 151 Balance 2049 2019 151 Meds/Results Medications: Active Medications Generic Name Dose Route Start Last Admin Trade Name Freq PRN Reason Stop Dose Admin Acetaminophen 500 mg 10/17/21 15:47 Acetaminophen 500 Mg Tablet PO Q6H PRN Mild Pain (1-3) or Fever Hydrocodone Bitart/Acetaminophen 1 tab 10/17/21 15:47 10/17/21 17:36 Hydrocodone/Acetaminophen (*Crx) 5-325 Mg Tablet PO 1 tab Q4H PRN Administration Pain Rated 4-6 Amlodipine Besylate 5 mg 10/17/21 17:00 10/19/21 08:44 Amlodipine Besylate 5 Mg Tablet PO Not Given BID LOREN Aspirin 81 mg 10/17/21 21:00 10/18/21 20:39 Aspirin 81 Mg Enteric Tablet PO 81 mg HS LOREN Administration Cholestyra
--- NOTE | 2021-10-19 13:35 | PM.CNCAR ---
Assessment and Plan Assessment and plan (1) Chronic atrial fibrillation: Code(s): I48.20 - Chronic atrial fibrillation, unspecified Status: Acute (2) Mitral valve regurgitation: Code(s): I34.0 - Nonrheumatic mitral (valve) insufficiency Status: Acute Plan 81-year-old man with ischemic heart disease and mitral valve disease with chronic atrial fibrillation. He underwent CABG and mitral valve repair in the remote past. He is hospitalized to have a rectal polyp removed. Following this he has had AF with RVR with which he is essentially asymptomatic. He does have significant residual MR based on his physical exam. Today I would like to recommend transitioning her from amlodipine to diltiazem which should provide better heart rate control. I will continue his metoprolol and reduce the dose of his lisinopril from 40-20 mg because his blood pressure is soft at this time. Systemic anticoagulation is appropriately on hold because of his rectal polypectomy. We will follow him with you during this hospitalization and since he has Cardiology follow-up actively arranged at [facility] in [place] it would not be my expectation to follow this long-term in our office Lewis Rutledge MD [facility] History of Present Illness History of Present Illness Consult date/time: 10/19/21 13:35 Consult reason: atrial fibrillation Reason For Visit: rectal polyp Narrative: This is an 81-year-old man I am seeing with the request of the hospitalist to manage his atrial fibrillation. The patient is unknown to me prior to this consultation he is a reasonable historian. He states that he is known to have chronic atrial fibrillation. He is a gentleman with coronary heart disease and valvular heart disease as well. He states that many years ago in the he was evaluated because of some chest pain and was found to have ischemic heart disease he underwent cardiac surgery at [facility] in [place] involving a bypass operation as well as a mitral valve repair. I do not have access to the operative note as I dictate this note as this occurred a long time ago and not at [facility]. The patient senior cytogenetic technologist followed him for a number of years after that he states he has had atrial fib since his operation. He has been anticoagulated and rate controlled has not done poorly at all he says he has not been rehospitalized with cardiac problems since then. He currently follows with a senior cytogenetic technologist in the [facility] in [place]. He does not know the name of that physician. He is taking a combination of apixaban for systemic anticoagulation and metoprolol 50 mg b.i.d. for rate control the other medications that are pertinent to this are lisinopril 40 mg per day and amlodipine 5 mg b.i.d.. He entered a [facility] couple of days ago as an outpatient for elective excision of a rectal polyp. Apparently he has a previous history of colon cancer and a number of years ago underwent a transverse colectomy here at [facility]. He had an adenomatous polyp in the rectum that was removed transanal E on Friday. He states he was upset following the surgery because he had a bowel movement and was incontinent of stool and found that very upsetting. This apparently was transferred from the floor to IMU earlier today because of AFib with RVR. In that setting I am asked to see him in consultation. He is currently lying in bed resting comfortably and does not have any complaints. He denies any chest pain shortness of breath orthopnea or PND. He is aware of palpitations or being in atrial fib. Atrial fib heart rate is between 110 and 140 today. Review of Systems Constitutional: Constitutional: Reports no additional constitutional complaints Eyes: Eyes: Reports no additional eye complaints ENT: Reports system reviewed and no additional complaints, except as documented Cardiovascular: Cardiovascular: Reports as per H
--- NOTE | 2021-10-19 13:47 | PC.NURSE ---
Spoke with Dr Rutledge regarding patient's medications and parameters that have been ordered. New order to give AM dose of Metoprolol that has not been given, and change parameters to hold for SBP < 90, instead of < 120 that was previously ordered
[2021-10-19] MEDS: METOPROLOL TARTRATE 50 MG TAB PO ×2 (13:50→20:44)
[2021-10-19] MEDS: dilTIAZem HCL CD 180 MG CAP.ER.24H PO (13:57)
[2021-10-19] MEDS: ASPIRIN 81 MG ENTERIC TABLET PO (20:44)
[2021-10-19] MEDS: PRAVASTATIN SODIUM 20 MG TABLET 40 MG PO (20:44)
[2021-10-19] MEDS: CHOLESTYRAMINE (W/ SUGAR) 4 GM POWD.PACK PO (20:45)
[2021-10-20] VITALS (10 sets, daily range): BP systolic 98–125; BP diastolic 57–67; PULSE 68–93; RESP 15–20; TEMP 36.1–36.9; O2SAT 95–96
--- NOTE | 2021-10-20 06:55 | PM.IMPN ---
Progress Note: A&P Assessment and Plan (1) History of coronary artery bypass graft: Code(s): Z95.1 - Presence of aortocoronary bypass graft Status: Acute Assessment and Plan: -stable (2) Hypertension: Code(s): I10 - Essential (primary) hypertension Status: Acute Assessment and Plan: --medications currently on hold due to the patient's blood pressure being 86/54, will administer 500 cc normal saline bolus. (3) MCC current use of anticoagulant: Code(s): Z79.01 - MCC (current) use of anticoagulants Status: Acute Assessment and Plan: defer anticoagulation to Surgery , hold anticoagulation for now (4) Rectal polyp: Code(s): K62.1 - Rectal polyp Status: Acute Assessment and Plan: Rectal polyp was excised Continue to monitor, currently is are from gauze 5 in by 9 in and she is placed over the rectum Patient reports significant amount of blood per rectum this morning. Hemoglobin hematocrit down turning, continue to monitor and hold anticoagulation Stat H&H, patient had a liquid bowel movement while I was in the room, hemoglobin does appear to be down trending (5) Cancer of transverse colon: Code(s): C18.4 - Malignant neoplasm of transverse colon Status: Acute Assessment and Plan: 2/2 above (6) Chronic atrial fibrillation: Code(s): I48.20 - Chronic atrial fibrillation, unspecified Status: Acute Assessment and Plan: Continue home medications Patient tachycardic this morning with heart rate 140s -150s at rest. Patient has p.r.n. metoprolol q.6 hours 5 mg to be administered for heart rate sustained of 120. Medication was not administered during the night. Consult cardiology for further recommendations, appreciate assistance Transfer patient to IMU Antihypertensives held due to hypotension Defer anticoagulation therapy to surgery after her surgical intervention for a rectal polyp removal Additional Plan Hold anticoagulation such as Lovenox and apixaban. Place patient on SCDs for DVT prophylaxis. Subjective Date/time seen: 10/20/21 06:55 Interval history: patient is doing well today. Heart rate well controlled. Patient continues complain of rectal pain. Patient has had multiple bowel movements although is a stool softener. Bowel movements appear brown. Patient denies any hematochezia or melena. Review of Systems Review of Systems: All systems reviewed & are unremarkable except as noted in HPI and below Exam Narrative: General: No acute distress. Mental Status: Awake, alert and oriented to person, place, and time with clear speech. Skin: Skin in warm, dry and intact without rashes or lesions. Head: Normocephalic and atraumatic. Eyes: Conjunctivae are clear without exudates or hemorrhage. Sclera is non-icteric. EOM are intact, PERRLA. Ears: The external ear and canal are non-tender and without swelling or discharge. Nose: Nasal mucosa is pink and moist. Septum midline. Nares patent bilaterally. Throat: Oral mucosa pink and moist with good dentition. Tongue midline. Neck: The neck supple without adenopathy. Trachea midline. No JVD. Cardiac: S1 and S2 regular rate and rhythm. + murmurs, no gallops, or rubs auscultated. Respiratory: Chest wall symmetric, nontender and without deformity or trauma. Respirations even and unlabored. Lung sounds are diminished to auscultation in all lobes bilaterally without wheezes, rhonchi, or rales. Abdominal: Abdomen soft, round and non-tender to palpation.? Bowel sounds present and normoactive in all 4 quadrants. Spine: Neck and back with grossly normal curvature, no deformity in appearance or signs of trauma. Extremities: Upper and lower extremities atraumatic without tenderness or deformity. Full range of motion and muscle strength 5/5 to all extremities bilaterally. Neurological: Full and symmetric motor and light touch sensation bilaterally. Cranial nerves II-XII grossly intact
[2021-10-20 08:20] LABS: Hematocrit 32.9 % (42.0-52.0); Hemoglobin 10.1 g/dL (14.0-18.0); Mean Corpuscular HGB Conc 30.7 g/dl (32-36); Mean Corpuscular Hemoglobin 22.6 pg (26-34); Mean Corpuscular Volume 73.6 fl (80-100); Mean Platelet Volume 10.6 fl (7.4-10.4); Platelet Count Result 346 k/mm3 (150-375); Red Blood Count 4.47 M/mm3 (4.6-6.20); Red Cell Distribution Width 17.8 % (11.5-14.5); White Blood Count 15.3 K/mm3 (4.5-10.0)
[2021-10-20] MEDS: DEXTROSE 5%/LACTATED RINGERS 1,000 ML 80 ML IV CONT (08:35)
[2021-10-20] MEDS: ACETAMINOPHEN 500 MG TABLET PO (08:36)
[2021-10-20] MEDS: lisinopriL 20 MG TABLET PO (08:37)
[2021-10-20] MEDS: METOPROLOL TARTRATE 50 MG TAB PO (08:37)
[2021-10-20 08:38] LABS: Alanine Aminotransferase 9 U/L (6-50); Albumin Level 2.9 g/dL (3.5-5.1); Alkaline Phosphatase 69 U/L (38-126); Anion Gap 0 mmol/L (8-16); Aspartate Amino Transferase 19 U/L (17-59); Bilirubin,Total 1.4 mg/dL (0.2-1.3); Blood Urea Nitrogen 9 mg/dL (9-20); Calcium 7.9 mg/dL (8.4-10.2); Carbon Dioxide 30 mmol/L (22-30); Chloride 103 mmol/L (98-107); Estimated CRCL calculation 62 ml/min; Estimated Glomerular Filt Rate > 60; Glucose 108 mg/dL (65-110); Potassium 3.6 mmol/L (3.4-5.0); Sodium 133 mmol/L (137-145)
[2021-10-20] MEDS: MEMANTINE 10 MG TABLET PO (08:38)
[2021-10-20] MEDS: CYANOCOBALAMIN 1,000 MCG TABLET 1000 MCG PO (08:38)
[2021-10-20] MEDS: DONEPEZIL HCL 10 MG TABLET PO (08:38)
[2021-10-20] MEDS: MINERAL OIL 30 ML UDC 15 ML PO (08:38)
[2021-10-20] MEDS: dilTIAZem HCL CD 180 MG CAP.ER.24H PO (08:38)
--- NOTE | 2021-10-20 11:03 | PM.PNCARD ---
Progress Note: A&P Assessment and Plan (1) Chronic atrial fibrillation: Code(s): I48.20 - Chronic atrial fibrillation, unspecified Status: Acute Assessment and Plan: Heart rate better controlled on metoprolol tartrate 50 mg twice daily and the addition of diltiazem 180 mg daily in lieu of amlodipine which has been discontinued. BP stable. Continue this regimen as tolerated and resume systemic anticoagulation with apixaban when okay from surgical perspective. H&H declined from admission but otherwise relatively stable past 24 hours. Patient follows regularly with his pathology tech at [facility]. He will follow-up with him as an outpatient. He will contact them Friday morning if he is discharged over the weekend. Will follow patient on an as-needed basis. Continue medical therapy and resume systemic anticoagulation as soon as is deemed safe. Please do not hesitate to contact us with any additional questions or concerns. (2) Mitral valve regurgitation: Code(s): I34.0 - Nonrheumatic mitral (valve) insufficiency Status: Acute Assessment and Plan: History mitral valve repair, stable, mild stenosis. Mild MR. (3) Postoperative anemia due to acute blood loss: Code(s): D62 - Acute posthemorrhagic anemia Status: Acute Assessment and Plan: Follow H&H, reasonably stable past 24 hours. Defer to primary and surgical service. Resume systemic anticoagulation when okay from this perspective. (4) History of mitral valve repair: Code(s): Z98.890 - Other specified postprocedural states Status: Acute Assessment and Plan: As above. (5) History of coronary artery bypass graft: Code(s): Z95.1 - Presence of aortocoronary bypass graft Status: Acute Assessment and Plan: Stable, no anginal symptoms. Preserved EF by echocardiogram. Subjective Date/time seen: Date of service: 10/20/21 11:03 Follow-up for atrial fibrillation with rapid ventricular response, history of remote CABG with mitral valve repair Patient feels well this morning. No new issues overnight. Heart rate much better controlled on metoprolol 50 mg twice daily and the addition of diltiazem 180 mg daily in lieu of amlodipine. No palpitations, chest pain or shortness of breath. Patient states this has happened previously when he undergoes colonoscopy or other significant health stressor. No concerns at this time. No reported ongoing bleeding. Review of Systems Review of Systems: No fevers, chills, abdominal pain or noted bleeding. No palpitations, shortness of breath or chest pain. Patient is very hard of hearing Constitutional: Constitutional: Reports no additional constitutional complaints Eyes: Eyes: Reports no additional eye complaints ENT: Reports system reviewed and no additional complaints, except as documented Cardiovascular: Cardiovascular: Reports as per HPI Respiratory: Respiratory: Reports no additional respiratory complaints Gastrointestinal: Gastrointestinal: Reports no additional gastrointestinal complaints Musculoskeletal: Musculoskeletal: Reports no additional musculoskeletal complaints Integumentary/Breasts: Skin/Breast: Reports system reviewed and no additional complaints, except as docu Neurologic: Reports system reviewed and no additional complaints, except as documented Endocrine: Endocrine: Reports no additional endocrine complaints Hematologic/Lymphatic: Hematologic/Lymphatic: Reports no additional hematologic/lymphatic complaints Allergic/Immunologic: Allergic/Immunologic: Reports no additional allergic/immunologic complaints Exam Const: General: comfortable and no acute distress Other: Very pleasant gentleman appearing his stated age no distress of any kind lying supine in bed, hard of hearing, alert and oriented x3 breathing comfortably speaking in full sentences. Pleasant and cooperative. HENMT: Mouth: Yes moist mucous membranes Ey
--- NOTE | 2021-10-20 12:33 | PM.DS ---
DS: Admitting Diagnosis Discharge Date 10/20/2021 Admitting Diagnosis Rectal polyp DS: Discharge Diagnosis Discharge Diagnosis (1) Anal polyp: Code(s): K62.0 - Anal polyp Status: Acute Assessment and Plan: status post transanal excision of benign rectal polyp, continue routine postoperative care, no further signs or symptoms of bleeding, follow-up 2 weeks (2) Chronic atrial fibrillation: Code(s): I48.20 - Chronic atrial fibrillation, unspecified Status: Acute Assessment and Plan: appreciate cardiology input, no further bleeding noted, okay to restart anticoagulation DS: Summary Hospital Course Reason for hospitalization: rectal polyp Hospital Course: The patient is an 81-year-old male with multiple medical issues including CAD, chronic AFib on anticoagulation presenting with a large rectal polyp. The patient underwent transanal excision on 10/17/2021, please see full operative report for details. Postoperatively the patient did and was transferred to the surgical floor. Over the next few days, the patient was noted to have some postoperative bleeding from the rectal. He was noted to be in AFib with RVR, as well. Given this, allergy was consulted and his anticoagulation was held. On the day of his discharge, he had no further bleeding over the last 24-48 hours. He reports no pain and has been able to tolerate a soft diet without issue. Cardiology has signed off and I will restart his anticoagulation. He will follow up with Dr. Wilson in 2 weeks. Status at Discharge Functional status at discharge: independent ambulation Overall status at discharge: patient is progressing back to baseline Time Spent with Patient Time attestation: Total time spent providing and/or coordinating discharge services: Exam Const: General: cooperative, comfortable and no acute distress Resp: Auscultation: clear to auscultation bilaterally Cardio: Rate: regular rate Rhythm: abnormal rhythm GI: GI Palp: Yes abdominal tenderness, Yes Soft to palpation, No Tenderness to palpation present (GI), No Guarding due to palpation present (GI) and No Rigid due to palpation DS: Data Data Completed and Pending Completed studies during hospitalization: Pending at discharge 10/17/21 13:02 Surgical [PTH] Routine Labs on day of discharge: Labs from last 24 hours 10/20/21 10/20/21 08:06 08:06 WBC 15.3 H RBC 4.47 L Hgb 10.1 L Hct 32.9 L MCV 73.6 L MCH 22.6 L MCHC 30.7 L RDW 17.8 H Plt Count 346 MPV 10.6 H Sodium 133 L Potassium 3.6 Chloride 103 Carbon Dioxide 30 Anion Gap 0 L BUN 9 D Creatinine 0.70 Estim Creat Clear Calc 62 Estimated GFR > 60 Glucose 108 Calcium 7.9 L Total Bilirubin 1.4 H AST 19 ALT 9 Alkaline Phosphatase 69 Total Protein 6.0 L Albumin 2.9 L Discharge Plan Discharge Attending physician on discharge: Anirudh Wilson Consulting providers: Neville Jackson ; Lewis Rutledge Discharging Clinician: Delores Shaver Anticipated Discharge Date/Time: 10/20/21 15:00 Patient Disposition: Home, Self-Care Activity: september shower Diet: as tolerated Patient Instructions: Antibiotic Form Stand Alone Forms: General Discharge Information Follow-up/Referrals: Anirudh Wilson MD [Physician] - 2 Weeks Discharge Medications: New hydrocodone-acetaminophen 5-325 mg tablet 1 tablet PO Q6H PRN (Reason: pain) Qty: 20 0RF Continued metoprolol tartrate 50 mg tablet 50 mg PO BID cholestyramine (with sugar) 4 gram powder See Rx Instructions .ROUTE .COMPLEX Rx Instructions: 1 SCOOP AT HS cyanocobalamin (vitamin B-12) 1,000 mcg capsule 1,000 mcg PO BID Eliquis 5 mg tablet 5 mg PO BID amlodipine 5 mg tablet 5 mg PO BID lisinopril 40 mg tablet 40 mg PO QAM donepezil 10 mg tablet 10 mg PO QAM pravastatin 40 mg tablet 40 mg PO H
--- NOTE | 2021-10-20 13:36 | PC.NURSE ---
While processing discharge instructions provided by Dr. Shaver, it was noted by this nurse that medication changes made by cardiology were not reflected in discharge instructions. Left message with Dr. Shaver to advise, and to make changes to discharge instructions.
--- NOTE | 2021-10-20 14:20 | PC.NURSE ---
Patient discharged to home, discharge instructions and medication education provided to patient spouse.
== END 2021-10-20 14:02 | disposition home or self-care (01) | DRG 394 ==
LOC: ANHSURGERY 14:11 → ANH2MED 14:11 → ANHIMU 10-19 10:15
PROVIDERS: Nurse Practitioner Family; Admitting Provider Surgery; PCP Family Medicine; Visit Provider Surgery
PROC: 0DBP8ZZ Excision of Rectum, Via Natural or Artificial Opening Endoscopic (ICD-10-PCS; principal; 2021-10-17 08:00)
DX: K62.1 Rectal polyp (principal); I48.20 Chronic atrial fibrillation, unspecified; D62 Acute posthemorrhagic anemia; C18.4 Malignant neoplasm of transverse colon; K64.8 Other hemorrhoids; E78.00 Pure hypercholesterolemia, unspecified; F03.90 Unspecified dementia, unspecified severity, without behavioral disturbance, psychotic disturbance, mood disturbance, and anxiety; H91.90 Unspecified hearing loss, unspecified ear; I25.9 Chronic ischemic heart disease, unspecified; I34.0 Nonrheumatic mitral (valve) insufficiency; I10 Essential (primary) hypertension; Z79.82 Long term (current) use of aspirin; Z79.01 Long term (current) use of anticoagulants; Z95.4 Presence of other heart-valve replacement; Z95.1 Presence of aortocoronary bypass graft; Z87.891 Personal history of nicotine dependence
CPT/HCPCS: 36415; 80048; 80053; 85014; 85018; 85027; 88305; 93005; 93306; A9270; G0378; J0330; J0690; J1100; J1650; J1885; J2370; J2405; J2704; J3010; J7040; J7120; J7121

== ENCOUNTER 2021-10-23 14:46 | Inpatient (IN) | payer MEDICARE, SELFPAY ==
[2021-10-23 14:52] VITALS: BP 103/51; PULSE 72; RESP 16; TEMP 37; O2SAT 98
[2021-10-23 15:37] LABS: Basophils Absolute Auto 0.2 K/mm3 (0.0-0.1); Basophils Percent Auto 0.9 % (0.2-1.2); Eosinophils Absolute Auto 0.1 K/mm3 (0-0.3); Eosinophils Percent Auto 0.6 % (0-4.4); Hematocrit 37.3 % (42.0-52.0); Immature Granulocyte Absolute 0.21 K/mm3 (0.00-0.031); Immature Granulocyte Percent A 1.2 % (0-0.5); Lymphocytes Absolute Auto 1.23 K/mm3 (0.9-3.2); Lymphocytes Percent Auto 6.8 % (18.3-44.2); Mean Corpuscular HGB Conc 29.5 g/dl (32-36); Mean Corpuscular Volume 74.6 fl (80-100); Mean Platelet Volume 10.4 fl (7.4-10.4); Monocytes Absolute Auto 1.2 K/mm3 (0.1-0.6); Monocytes Percent Auto 6.5 % (2.6-8.5); Neutrophils Absolute Auto 15.2 K/mm3 (1.3-6.7); Platelet Count Result 505 k/mm3 (150-375); Red Cell Distribution Width 18.9 % (11.5-14.5); White Blood Count 18.1 K/mm3 (4.5-10.0)
[2021-10-23 15:47] LABS: Alanine Aminotransferase 13 U/L (6-50); Albumin Level 3.7 g/dL (3.5-5.1); Alkaline Phosphatase 86 U/L (38-126); Anion Gap 4 mmol/L (8-16); Aspartate Amino Transferase 23 U/L (17-59); Bilirubin,Total 1.7 mg/dL (0.2-1.3); Blood Urea Nitrogen 13 mg/dL (9-20); Calcium 8.8 mg/dL (8.4-10.2); Carbon Dioxide 28 mmol/L (22-30); Chloride 101 mmol/L (98-107); Estimated CRCL calculation 53 ml/min; Estimated Glomerular Filt Rate > 60; Glucose 123 mg/dL (65-110); INR 1.5; Potassium 5.3 mmol/L (3.4-5.0); Prothrombin Time 17.4 Seconds (11.1-14.7); Sodium 133 mmol/L (137-145)
[2021-10-23 15:48] LABS: Partial Thromboplastin Time 37.7 SECONDS (22.3-36.8)
[2021-10-23 16:01] LABS: Anisocytosis 2+ (NORMAL); Hypochromasia 1+ (NORMAL); Platelet Estimate Increased (Adequate)
[2021-10-23 18:03] VITALS: BP 130/76; PULSE 83; RESP 18; O2SAT 98
[2021-10-23] MEDS: SODIUM CHLORIDE 0.9% IV 1,000 ML 999 ML IV CONT (19:38)
[2021-10-23 19:39] VITALS: BP 120/72; PULSE 90; RESP 17; O2SAT 97
--- NOTE | 2021-10-23 20:02 | ED.GIBLEED ---
HPI - GI Bleed General Chief complaint: GI Bleed <Nitin Marie MD - Last Filed: 10/23/21 20:10> Stated complaint: post op bleeding from anus <Nitin Marie MD - Last Filed: 10/23/21 20:10> Time Seen by Provider: 10/23/21 19:19 <Nitin Marie MD - Last Filed: 10/23/21 20:10> History of Present Illness HPI Narrative: 81-year-old with a history of A. fib, s/p anal polypectomy done recently was brought in by his with complaints of having rectal bleeding since this afternoon. Patient mentions that he had 2episodes of rectal bleeding , upon arrival into the ED he had another large blood clot per rectum , He denies any abdominal pain . states he was feeling dizzy at home and was cold and clammy, she also mentions that he was recently discharged from the hospital for atrial fibrillation <Nitin Marie MD - Last Filed: 10/23/21 20:10> Related Data Home medications: Home Medications Medication Instructions Recorded Confirmed apixaban 5 mg tablet (Eliquis) 5 mg PO BID 09/26/21 10/23/21 aspirin 81 mg tablet,delayed 81 mg PO HS 09/26/21 10/23/21 release (Adult Low Dose Aspirin) cholestyramine (with sugar) 4 gram See Rx Instructions .Route .COMPLEX 09/26/21 10/23/21 oral powder cyanocobalamin (vitamin B-12) 1,000 mcg PO BID 09/26/21 10/23/21 1,000 mcg capsule donepezil 10 mg tablet 10 mg PO QAM 09/26/21 10/23/21 metoprolol tartrate 50 mg tablet 50 mg PO BID 09/26/21 10/23/21 pravastatin 40 mg tablet 40 mg PO HS 09/26/21 10/23/21 memantine 10 mg tablet 10 mg PO BID 10/09/21 10/23/21 amlodipine 5 mg tablet 1 tablet PO BID 10/23/21 10/23/21 <Nitin Marie MD - Last Filed: 10/23/21 20:10> Allergies/Adverse reactions: Allergies Allergy/AdvReac Type Severity Reaction Status Date / Time No Known Allergies Allergy Verified 10/23/21 19:41 <Nitin Marie MD - Last Filed: 10/23/21 20:10> Review of Systems Review of Systems: All systems reviewed & are unremarkable except as noted in HPI and below <Nitin Marie MD - Last Filed: 10/23/21 20:10> Constitutional: Constitutional: Reports no additional constitutional complaints <Nitin Marie MD - Last Filed: 10/23/21 20:10> Eyes: Eyes: Reports no additional eye complaints <Nitin Marie MD - Last Filed: 10/23/21 20:10> ENT: Reports system reviewed and no additional complaints, except as documented <Nitin Marie MD - Last Filed: 10/23/21 20:10> Cardiovascular: Cardiovascular: Reports no additional cardiovascular complaints <Nitin Marie MD - Last Filed: 10/23/21 20:10> Respiratory: Respiratory: Reports no additional respiratory complaints <Nitin Marie MD - Last Filed: 10/23/21 20:10> Gastrointestinal: Gastrointestinal: Reports as per HPI <Nitin Marie MD - Last Filed: 10/23/21 20:10> Musculoskeletal: Musculoskeletal: Reports no additional musculoskeletal complaints <Nitin Marie MD - Last Filed: 10/23/21 20:10> Integumentary/Breasts: Skin/Breast: Reports system reviewed and no additional complaints, except as docu <Nitin Marie MD - Last Filed: 10/23/21 20:10> Endocrine: Endocrine: Reports no additional endocrine complaints <Nitin Marie MD - Last Filed: 10/23/21 20:10> PMFSH Past Medical History Medical History: Medical History Cancer of transverse colon Chronic atrial fibrillation Dementia Heart murmur High cholesterol Hypertension [place] tender current use of anticoagulant Mucous adenocarcinoma Seizures <Nitin Marie MD - Last Filed: 10/23/21 20:10> Surgical History Surgical History: Surgical History History of brain surgery History of colon surgery History of coronary artery bypass graft Hx of mitral valve replacement <Nitin Marie MD - Last Filed: 10/23/21 20:10> Family History Family History: Family History (Reviewed 10/23/21 @ 20:
--- NOTE | 2021-10-23 20:23 | PM.IMHP ---
H&P: HPI History of Present Illness Date/Time: 10/23/21 20:23 Chief Complaint: rectal bleeding Narrative: Pt is a 81 y/o M c multiple med issues presenting to ED today c/o bright bleeding per rectum. Pt had transanal excision of rectal polyp last week. Pt reports since d/c he has had some sl bloody BMs but started c more significant bleeding today. Pt reports he has had constant oozing from rectum and has passed multiple large clots. Pt reports some chills at home but otherwise has been in his baseline state of health. Pt denies any MS changes, dizziness, etc. Pt is on Eliquis for Afib and he did take this today. Pt has a h/o dementia and most of the history is taken from . 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 Mucous adenocarcinoma Seizures Surgical History Surgical History History of brain surgery History of colon surgery History of coronary artery bypass graft Hx of mitral valve replacement Family History Family History Mother Family history of malignant neoplasm of ovary Father Heart disease Heart attack Other Family history of coronary artery disease Hypertension Social History Social History Smoking packs per day: 1 Smoking cigarettes per day: 20.0 Years smoked: 15 Smoking pack-years: 15.00 Smoking status: Former smoker Tobacco type: cigarettes Second hand tobacco smoke exposure: No Additional smoking assessment comments: SPOUSE STATES STOPPED SMOKING 1979? Alcohol intake: never Substance use: never Substance use type: does not use Gender identity (if verbalized by the patient): Male Sexual Orientation (if Verbalized by the Patient): Straight or Heterosexual Spiritual care concerns: No Meds Home Medications and Allergies Home Medications Medication Instructions Recorded Confirmed Type apixaban 5 mg tablet (Eliquis) 5 mg PO BID 09/26/21 10/17/21 History aspirin 81 mg tablet,delayed 81 mg PO HS 09/26/21 10/17/21 History release (Adult Low Dose Aspirin) cholestyramine (with sugar) 4 gram See Rx Instructions .Route .COMPLEX 09/26/21 10/09/21 History oral powder cyanocobalamin (vitamin B-12) 1,000 mcg PO BID 09/26/21 10/09/21 History 1,000 mcg capsule donepezil 10 mg tablet 10 mg PO QAM 09/26/21 10/17/21 History metoprolol tartrate 50 mg tablet 50 mg PO BID 09/26/21 10/17/21 History pravastatin 40 mg tablet 40 mg PO HS 09/26/21 10/09/21 History memantine 10 mg tablet 10 mg PO BID 10/09/21 10/17/21 History diltiazem HCl 180 mg 180 mg PO QAM #30 caps 10/20/21 Rx capsule,extended release 24 hr, controlled hydrocodone 5 mg-acetaminophen 325 1 tablet PO Q6H PRN pain #20 tabs 10/20/21 Rx mg tablet lisinopril 20 mg tablet 20 mg PO QAM 10/20/21 Rx Allergies Allergy/AdvReac Type Severity Reaction Status Date / Time No Known Allergies Allergy Verified 10/23/21 19:41 Vital Signs Vital Signs - 24 hr 10/23/21 14:52 10/23/21 18:03 10/23/21 19:39 Temperature 37.0 C Pulse Rate 72 83 90 Respiratory Rate 16 18 17 Blood Pressure 103/51 L 130/76 120/72 Pulse Oximetry 98 98 97 Oxygen Delivery Room Air Room Air Exam Const: General: cooperative, comfortable and no acute distress HENMT: Head: normal to inspection, normocephalic and atraumatic Face and sinus: normal facial exam Eyes: General: appearance normal, both eyes and all related structures Neck: Neck: normal visual inspection, full ROM and no lymphadenopathy Resp: Aus
[2021-10-23 21:18] VITALS: BP 114/68; PULSE 76; RESP 16; O2SAT 95
[2021-10-23] MEDS: LACTATED RINGERS 1,000 ML 100 ML IV CONT (21:21)
[2021-10-23 23:06] VITALS: BMI 24.0
--- NOTE | 2021-10-23 23:09 | ADMGEN ---
This patient, Erik Davis, was admitted to Medical Room 247-01. Patient/family oriented to hospital policies and general routines including ID bracelet, bed and alarms, visiting hours, pain management, procedures, bathroom and other care routines, personal items, smoking policy, room service/diet, and visiting hours. Information on how to activate the Rapid Response Team has been discussed. Patient/Family are encouraged to report perceived risks to care and to ask questions if they do not understand what they are told or what they should do.
[2021-10-24] VITALS (34 sets, daily range): BP systolic 80–126; BP diastolic 58–89; PULSE 75–152; RESP 14–20; TEMP 36.3–37; O2SAT 92–100; BMI 24.0
[2021-10-24 01:18] LABS: Hematocrit 32.2 % (42.0-52.0); Hemoglobin 9.5 g/dL (14.0-18.0)
--- NOTE | 2021-10-24 03:03 | PC.NURSE ---
This patient, Erik Davis, was received from [facility] on 10/24/21 at 0300. REPORT RECEIVED FROM VEGA JERONIMO. Patient/family oriented to unit policies and routines
--- NOTE | 2021-10-24 03:16 | PM.IMCN ---
Assessment and Plan Assessment and plan (1) Rectal bleeding: Code(s): K62.5 - Hemorrhage of anus and rectum Status: Acute Assessment and Plan: At this point time nursing is repacking patient's rectum. Patient has had a 2 g drop in hemoglobin. Will transfuse 2 units of O-negative blood at this time since patient's heart rate does elevate to 170 at times. Will also type and crossmatch patient for additionally units. If patient continues to have large amounts of bright red blood per rectum general surgery will need to come in to evaluate patient to see if he needs to go to the operating room. (2) Chronic atrial fibrillation: Code(s): I48.20 - Chronic atrial fibrillation, unspecified Status: Acute Assessment and Plan: Patient did take his morning dose of Eliquis. At this point time patient will be given a dose of Kcentra and hopes that this will stop bleeding. Eliquis will need to be placed on hold. Patient's heart rate does elevate when he is having a bowel movement, but when patient is resting heart rate is significantly improved. Will continue to monitor heart rate. Patient most likely needs to receive blood to improve heart rate. HPI Data of Consult Consult date: 10/24/21 Requesting Physician: Kerry Mariscal DO Primary Care Provider: Anirudh Wilson MD Consult Narrative Narrative: Erik Davis is a 81 year old male who presented to the emergency room today with complaints of bright red blood per rectum. Patient recently had a trans anal excision of rectal polyps with Dr. Thompson. Patient reported to the emergency room that since he had been discharged she had had some bloody stools and then today he had a large amount of bleeding per rectum. Patient states he has had a constant oozing of blood and has passed multiple large blood clots per rectum. Patient states he has had some chills at home, but he is unaware of any fever. Patient denies any lightheadedness, dizziness, syncopal, or near syncopal episodes. Patient denies any chest pain or shortness of breath. When evaluated by General surgery patient did have packing placed to his rectum and patient subsequently had a bowel movement and the packing did come out and patient had a large amount of blood per rectum noted. General surgery was called and the nurses were to replace the packing. Patient does have a known history of atrial fibrillation and does take Eliquis for this. Patient did take a dose of Eliquis today. Patient has a known history of transverse colon cancer, coronary artery disease status post coronary bypass grafting, chronic atrial fibrillation, dementia, dyslipidemia, hypertension, and seizures. Patient states he has been taking all medications without any difficulty. Review of Systems Review of Systems: A 12 point review of systems was completed patient all pertinent positive and negative per HPI the remainder are unremarkable. 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
[2021-10-24] MEDS: HUMAN PROTHROMBIN COMPLEX(PCC) 3,000 UNITS in PREMIXIV 0 ML 8.3 UNITS IV CONT (03:24)
--- NOTE | 2021-10-24 03:30 | PC.NURSE ---
[id number] transferred to IMU room 212
[2021-10-24 05:17] LABS: INR 1.2; Prothrombin Time 14.8 Seconds (11.1-14.7)
[2021-10-24 05:18] LABS: Anion Gap 6 mmol/L (8-16); Blood Urea Nitrogen 11 mg/dL (9-20); Calcium 7.8 mg/dL (8.4-10.2); Carbon Dioxide 24 mmol/L (22-30); Chloride 103 mmol/L (98-107); Estimated CRCL calculation 77 ml/min; Estimated Glomerular Filt Rate > 60; Glucose 93 mg/dL (65-110); Partial Thromboplastin Time 38.8 SECONDS (22.3-36.8); Potassium 3.8 mmol/L (3.4-5.0); Sodium 133 mmol/L (137-145)
[2021-10-24] MEDS: SODIUM CHLORIDE 0.9% IV 250 ML 30 ML IV CONT (08:30)
[2021-10-24 14:16] LABS: Hematocrit 38.3 % (42.0-52.0); Hemoglobin 11.7 g/dL (14.0-18.0)
--- NOTE | 2021-10-24 14:43 | PCNSR ---
On 10/24/21, the student, Hannah Simms, provided care and completed [facility] documentation on this patient. I have reviewed the student's documentation and agree with the findings.
--- NOTE | 2021-10-24 15:08 | PM.PNGS ---
Progress Note: A&P Assessment and Plan (1) Rectal bleeding: Code(s): K62.5 - Hemorrhage of anus and rectum Status: Acute Assessment and Plan: Persistent rectal bleeding status post transanal excision of large rectal polyp 7 days ago. Bleeding no doubt exacerbated by his apixaban as he was not bleeding at the time of his discharge. Will take patient to the OR and look for a source of bleeding that can be controlled. I suspect this will stop with holding the apixaban but this takes a couple of days to reverse. Discussed with patient and his . (2) Rectal polyp: Code(s): K62.1 - Rectal polyp Status: Acute Assessment and Plan: Excision 10/17/2021. Pathology showed tubulovillous adenoma. 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 (4) Postoperative anemia due to acute blood loss: Code(s): D62 - Acute posthemorrhagic anemia Status: Acute Assessment and Plan: Patient transfused by hospitalist for drop in hemoglobin of 2 g associated with blood pressure in the 90s. Post transfusion H&H showed good improvement. Subjective Subjective Date/Time Seen: 10/24/21 15:08 Patient reports: blood in stool (Persistent rectal bleeding) Interval history: Patient developed rectal bleeding yesterday and went to the emergency room. He continued to have rectal bleeding as described in the history and physical. I took over for Dr. Shaver this morning. The patient had approximately 3 large bloody stools on [facility] after he arrived there around midnight last night. He transferred to IMU and I spoke with his nurse at 7:00 a.m.. He had little bleeding in the ensuing 4 hours. However during the day, he has had some off and on bleeding into diapers. He is not really able to convey to the nurses when he has a bloody stool. It is not entirely clear how rapidly the bleeding is continuing to occur but there has been clots in the diaper as well. He had an appropriate response to transfusion of 2 units packed red cells and has not been hemodynamically unstable. Patient was seen this morning around 7:00 a.m. but after talking with his nurse just now, we plan to go back to the operating room for rectal exam under anesthesia and control of rectal bleeding. Review of Systems Review of Systems: ROS unobtainable: Yes unobtainable due to medical condition (Memory impairment, dementia) Exam Const: General: comfortable, alert and awake; No acute distress Nutritional Appearance: thin GI: Inspection: non-distended and scaphoid GI Palp: Yes Soft to palpation and No Tenderness to palpation present (GI) Rectal Exam: visual inspection abnormal other (Traces of blood, no tissue protruding from rectum.) Objective Data Vital Signs Vital Signs: Vital Signs - 24 hr 10/23/21 18:03 10/23/21 19:39 10/23/21 21:18 Temperature Pulse Rate 83 90 76 Respiratory Rate 18 17 16 Blood Pressure 130/76 120/72 114/68 Pulse Oximetry 98 97 95 Oxygen Delivery Room Air 10/23/21 23:14 10/24/21 02:21 10/24/21 00:00 Temperature 36.8 C Pulse Rate 114 H 107 H Respiratory Rate 20 Blood Pressure 124/80 Pulse Oximetry 94 Oxygen Delivery Room Air 10/24/21 02:45 10/24/21 04:01 10/24/21 05:10 Temperature 36.3 C L 36.8 C 36.3 C L Pulse Rate 98 104 H 115 H Respiratory Rate 20 18 20 Blood Pressure 120/58 L 126/71 112/88 Pulse Oximetry 94 94 94 Oxygen Delivery 10/24/21 05:25 10/24/21 04:00 10/24/21 06:25 Temperature 36.6 C 36.7 C Pulse Rate 106 H 116 H 108 H Respiratory Rate 20 16 Blood Pressure 102/65 108/77 Pulse Oximetry 96 94 Oxygen Delivery 10/24/21 07:25 10/24/21 07:25 10/24/21 09:00 Temperature 36.6 C 36.6 C 36.8 C Pulse Rate 75 75 116 H Respiratory Rate 18 18 16 Blood Pressure 110/78 110/78 123/7
[2021-10-24] MEDS: METOPROLOL TARTRATE INJ 5 MG/5 ML VIAL IV PUSH ×2 (15:19→18:52)
--- NOTE | 2021-10-24 15:30 | WPDANESEPPF ---
Anes - Initial Pre Proc Eval Procedure: Operation Date: 10/24/21 16:30 Proposed Procedures p Rectal Exam Under Anesthesia - Anirudh Wilson MD Date/Time: 10/24/21 15:30 Surgeon: Adele Bucio DO Pre Op Diagnosis: rectal bleed Patient Data Age: 81 Gender: M Height: 1.7 m Weight: 69.5 kg Last Vital Signs Temp 36.9 C 10/24/21 11:15 Pulse 152 H 10/24/21 15:19 Resp 14 10/24/21 11:15 BP 109/78 10/24/21 11:15 Pulse Ox 97 10/24/21 11:15 O2 Del Method Room Air 10/23/21 23:14 Allergies Allergy/AdvReac Type Severity Reaction Status Date / Time No Known Allergies Allergy Verified 10/23/21 19:41 Home Medications Medication Instructions Recorded Confirmed Type apixaban 5 mg tablet (Eliquis) 5 mg PO BID 09/26/21 10/23/21 History aspirin 81 mg tablet,delayed 81 mg PO HS 09/26/21 10/23/21 History release (Adult Low Dose Aspirin) cholestyramine (with sugar) 4 gram See Rx Instructions .Route .COMPLEX 09/26/21 10/23/21 History oral powder cyanocobalamin (vitamin B-12) 1,000 mcg PO BID 09/26/21 10/23/21 History 1,000 mcg capsule donepezil 10 mg tablet 10 mg PO QAM 09/26/21 10/23/21 History metoprolol tartrate 50 mg tablet 50 mg PO BID 09/26/21 10/23/21 History pravastatin 40 mg tablet 40 mg PO HS 09/26/21 10/23/21 History memantine 10 mg tablet 10 mg PO BID 10/09/21 10/23/21 History diltiazem HCl 180 mg 180 mg PO QAM #30 caps 10/20/21 10/23/21 Rx capsule,extended release 24 hr, controlled hydrocodone 5 mg-acetaminophen 325 1 tablet PO Q6H PRN pain #20 tabs 10/20/21 10/23/21 Rx mg tablet lisinopril 20 mg tablet 20 mg PO QAM 10/20/21 10/23/21 Rx amlodipine 5 mg tablet 1 tablet PO BID 10/23/21 10/23/21 History Laboratory Tests 10/23/21 10/23/21 10/23/21 15:30 15:30 15:31 WBC 18.1 K/mm3 H K/mm3 (4.5-10.0) RBC 5.00 M/mm3 M/mm3 (4.6-6.20) Hgb 11.0 g/dL L g/dL (14.0-18.0) Hct 37.3 % L % (42.0-52.0) MCV 74.6 fl L fl (80-100) MCH 22.0 pg L pg (26-34) MCHC 29.5 g/dl L g/dl (32-36) RDW 18.9 % H % (11.5-14.5) Plt Count 505 k/mm3 H k/mm3 (150-375) MPV 10.4 fl fl (7.4-10.4) Immature Gran % (Auto) 1.2 % H % (0-0.5) Neut % (Auto) 84.0 % H % (45.5-73.1) Lymph % (Auto) 6.8 % L % (18.3-44.2) [place] % (Auto) 6.5 % % (2.6-8.5) Eos % (Auto) 0.6 % % (0-4.4) Baso % (Auto) 0.9 % % (0.2-1.2) Lymph # (Auto) 1.23 K/mm3 K/mm3 (0.9-3.2) [place] # (Auto) 1.2 K/mm3 H K/mm3 (0.1-0.6) Eos # (Auto) 0.1 K/mm3 K/mm3 (0-0.3) Baso # (Auto) 0.2 K/mm3 H K/mm3 (0.0-0.1) Abs Immat Gran (auto) 0.21 K/mm3 H K/mm3 (0.00-0.031) Absolute Neuts (auto) 15.2 K/mm3 H K/mm3 (1.3-6.7) Absolute Nucleated RBC 0.0 K/mm3 K/mm3 (0.0-0.012) Nucleated RBC % 0.0 % % (0.0-0.2) Platelet Estimate Increased (Adequate) Hypochromasia 1+ (NORMAL) Anisocytosis 2+ (NORMAL) PT 17.4 Seconds H Seconds (11.1-14.7) INR 1.5 APTT 37.7 SECONDS H SECONDS (22.3-36.8) Sodium Potassium Chloride Carbon Dioxide Anion Gap BUN Creatinine Estim Creat Clear Calc Estimated GFR Glucose Calcium Total Bilirubin AST ALT Alkaline Phosphatase Total Protein Albumin Blood Type O Positive Antibody Screen Negative Crossmatch See Detail 10/23/21 10/24/21 10/24/21 15:31 00:28 04:54 WBC RBC Hgb 9.5 g/dL L g/dL (14.0-18.0) Hct 32.2 % L % (42.0-52.0) MCV MCH MCHC RDW
--- NOTE | 2021-10-24 15:37 | WPDHPUPDATE1 ---
History and Physical Update Update Date/Time: 10/24/21 15:37 History and Physical has been reviewed, including an updated exam of the patient. There are NO changes in the patient's condition. Risks, benefits, and alternatives have been discussed and questions answered. Patient agrees to proceed with procedure.
[2021-10-24] MEDS: LACTATED RINGERS 1,000 ML 30 ML IV CONT (15:53)
--- NOTE | 2021-10-24 17:26 | W.PM.PROC2 ---
Procedure Note - Detailed Date of Procedure 10/24/21 Pre-op Diagnosis rectal bleeding Post-op Diagnosis Same Procedure Performed Rectal examination under anesthesia for control of postoperative bleeding Surgeon Anirudh Wilson MD Customer Business Manager Juany SANCHEZ Anesthesia General Indications Patient underwent excision of a large distal rectal polyp transanally on 10/17/2021. He was restarted on his apixaban the day prior to discharge. He started having significant rectal bleeding yesterday and came to the emergency room. He has continued to have slow but steady rectal bleeding. The apixaban has been held. He is taken to surgery now for rectal EUA for control of bleeding. Findings Several raw surface areas that were friable and could easily bleed were seen. One area in the anterior midline appeared to have oozing from the submucosa. Description of Procedure Patient was taken to surgery and induced into general anesthesia. He was placed in prone ailyn-knife position. Buttocks were taped apart. Prep and drape were carried out. Using 1st a small [place] anoscope, I inspected the rectum. There was a lot of old blood present. There was quite a few clots as well. This was all suctioned away. This took a few minutes as there was quite a buildup of old blood. Once this was removed I was able to more easily inspect the rib distal rectal mucosa. I changed to a medium [place] anoscope. Using suction and direct visualization, I carefully surveyed circumferentially around the distal rectum. There was quite a few areas of reddened, raw mucosa. There did seem to be more oozing than in other places in the anterior midline at the edge of a mucosal defect. I used a 3-0 chromic suture and sutured this area. This appeared to be effective. There was some raw surface near there and I cauterized that. I then circumferentially went around the rectum using a Ray-[place]era sponge to dry the area and then exposed any raw surface area that seemed likely to bleed. Each of these was cauterized. I then reached checked circumferentially around the rectum couple more times looking for any other areas that might be suspect as a bleeding site. I did not see any. No further bleeding had occurred. We dressed the rectum with Xeroform gauze fluffs and Medipore tape. The patient was returned to a supine position. He was awakened and extubated. He was transferred to recovery in good condition. Estimated Blood Loss -10 Urine Output 125 Drains No Packing No Pathology None sent Complications No immediate complications Condition Stable Disposition PACU [facility] Billing Surgery - Charge Forward: Surgery Billing (Transanal control of rectal bleeding, rectal EUA)
[2021-10-24] MEDS: LACTATED RINGERS 1,000 ML 80 ML IV CONT (18:40)
[2021-10-24] MEDS: SODIUM CHLORIDE 0.9% IV 1,000 ML 999 ML IV CONT (20:12)
[2021-10-24] MEDS: FAMOTIDINE 20 MG/2 ML VIAL IV PUSH (20:12)
[2021-10-24] MEDS: dilTIAZem HCL 60 MG TABLET PO (22:37)
[2021-10-25] VITALS (18 sets, daily range): BP systolic 95–125; BP diastolic 64–93; PULSE 67–152; RESP 16–20; TEMP 36.1–36.6; O2SAT 95–98
[2021-10-25] MEDS: dilTIAZem HCL 60 MG TABLET PO (04:02)
[2021-10-25 06:20] LABS: Hematocrit 36.3 % (42.0-52.0); Hemoglobin 11.5 g/dL (14.0-18.0); Mean Corpuscular HGB Conc 31.7 g/dl (32-36); Mean Corpuscular Volume 75.6 fl (80-100); Mean Platelet Volume 10.9 fl (7.4-10.4); Platelet Count Result 442 k/mm3 (150-375); Red Cell Distribution Width 19.4 % (11.5-14.5); White Blood Count 13.9 K/mm3 (4.5-10.0)
[2021-10-25 06:36] LABS: Anion Gap 8 mmol/L (8-16); Blood Urea Nitrogen 14 mg/dL (9-20); Calcium 7.7 mg/dL (8.4-10.2); Carbon Dioxide 20 mmol/L (22-30); Chloride 104 mmol/L (98-107); Estimated CRCL calculation 67 ml/min; Estimated Glomerular Filt Rate > 60; Glucose 120 mg/dL (65-110); Potassium 3.9 mmol/L (3.4-5.0); Sodium 132 mmol/L (137-145)
--- NOTE | 2021-10-25 08:33 | PM.PNGS ---
Progress Note: A&P Assessment and Plan (1) Rectal bleeding: Code(s): K62.5 - Hemorrhage of anus and rectum Status: Acute Assessment and Plan: no further bleeding since surgery yesterday evening. Continue to monitor. Start clear liquids. (2) Postoperative anemia due to acute blood loss: Code(s): D62 - Acute posthemorrhagic anemia Status: Acute Assessment and Plan: H&H stable from yesterday. (3) alf current use of anticoagulant: Code(s): Z79.01 - alf (current) use of anticoagulants Status: Acute Assessment and Plan: Continue to hold anticoagulation. (4) Rectal polyp: Code(s): K62.1 - Rectal polyp Status: Acute Assessment and Plan: Resected 10/17/2021. Pathology showed tubulovillous adenoma. Subjective Subjective Date/Time Seen: 10/25/21 08:33 Post Op day: 1 Patient reports: no new complaints, feels better, diarrhea ( No blood through the night per nursing, 1 BM of liquid brown stool.) and afebrile Interval history: Patient denies any rectal or abdominal pain. Review of Systems Review of Systems: ROS unobtainable: Yes unobtainable due to medical condition ( Memory impairment, dementia) Exam Const: General: cooperative, comfortable, alert and awake Nutritional Appearance: thin GI: Inspection: normal to inspection and scaphoid GI Palp: Yes Soft to palpation and No Tenderness to palpation present (GI) Rectal Exam: visual inspection normal ( no blood noted) Objective Data Vital Signs Vital Signs: Vital Signs - 24 hr 10/24/21 09:00 10/24/21 09:00 10/24/21 09:15 Temperature 36.8 C 36.8 C 36.8 C Pulse Rate 116 H 116 H 118 H Respiratory Rate 16 16 14 Blood Pressure 123/76 123/76 122/69 Pulse Oximetry 96 96 95 Oxygen Delivery Oxygen Flow Rate 10/24/21 10:15 10/24/21 11:15 10/24/21 11:15 Temperature 36.7 C 36.9 C 36.9 C Pulse Rate 120 H 128 H 128 H Respiratory Rate 16 14 14 Blood Pressure 119/82 109/78 109/78 Pulse Oximetry 95 97 97 Oxygen Delivery Oxygen Flow Rate 10/24/21 15:19 10/24/21 15:36 10/24/21 16:27 Temperature 36.8 C 37.0 C Pulse Rate 152 H 118 H 112 H Respiratory Rate 14 16 Blood Pressure 124/89 80/69 L Pulse Oximetry 96 97 Oxygen Delivery Room Air Simple Face Mask Oxygen Flow Rate 8 10/24/21 16:31 10/24/21 16:45 10/24/21 16:55 Temperature Pulse Rate 128 H 108 H 116 H Respiratory Rate 18 16 16 Blood Pressure 98/62 L 90/69 L 92/75 L Pulse Oximetry 99 100 100 Oxygen Delivery Simple Face Mask Simple Face Mask Room Air Oxygen Flow Rate 8 8 10/24/21 17:00 10/24/21 17:05 10/24/21 17:15 Temperature 36.3 C L Pulse Rate 120 H 118 H 110 H Respiratory Rate 16 18 18 Blood Pressure 105/70 111/77 109/86 Pulse Oximetry 95 96 94 Oxygen Delivery Room Air Room Air Room Air Oxygen Flow Rate 10/24/21 17:25 10/24/21 12:00 10/24/21 17:35 Temperature Pulse Rate 120 H Respiratory Rate 14 Blood Pressure 106/82 Pulse Oximetry 96 98 Oxygen Delivery Room Air Room Air Room Air Oxygen Flow Rate 10/24/21 17:44 10/24/21 18:14 10/24/21 18:52 Temperature 36.6 C 36.6 C Pulse Rate 129 H 138 H 131 H Respiratory Rate 16 16 Blood Pressure 103/86 105/82 Pulse Oximetry 97 98 Oxygen Delivery Oxygen Flow Rate 10/24/21 10:00 10/24/21 12:00 10/24/21 14:00 Temperature Pulse Rate 119 H 125 H 131 H Respiratory Rate Blood Pressure Pulse Oximetry Oxygen Delivery Oxygen Flow Rate 10/24/21 18:00 10/24/21 20:00 10/25/21 00:00 Temperature 36.4 C L 36.3 C L Pulse Rate 136 H 135 H 135 H Respiratory Rate 16 16 Blood Pressure 126/89 110/86 Pulse Oximetry 97 96 Oxygen Delivery Oxygen Flow Rate 10/24/21 20:00 10/25/21 00:00 10/24/21 20:00 Temperature Pulse Rate 129 H Respiratory Rate Blood Pressure Pulse Oximetry Oxygen Delivery Room Air Room Air Oxygen Flow Rate 10/24/21 22:00
[2021-10-25] MEDS: LACTATED RINGERS 1,000 ML 80 ML IV CONT (09:06)
[2021-10-25] MEDS: dilTIAZem HCL CD 180 MG CAP.ER.24H PO (09:06)
[2021-10-25] MEDS: FAMOTIDINE 20 MG/2 ML VIAL IV PUSH ×2 (09:07→21:42)
[2021-10-25] MEDS: METOPROLOL TARTRATE 50 MG TAB PO ×2 (14:13→21:42)
--- NOTE | 2021-10-25 16:52 | PM.IMPN ---
Progress Note: A&P Assessment and Plan (1) Rectal bleeding: Code(s): K62.5 - Hemorrhage of anus and rectum Status: Acute Assessment and Plan: resolved, likely d/c tomorrow if tolerating po (2) Chronic atrial fibrillation: Code(s): I48.20 - Chronic atrial fibrillation, unspecified Status: Acute Assessment and Plan: restart eliquis when ok by surgery Subjective Date/time seen: 10/25/21 16:52 Interval history: Patient resting comfortably, no complaints. No overnight events. No bleeding noted since procedure done yesterday. No fevers or chills. No nausea vomiting diarrhea. Denies chest pain or shortness of breath. Review of Systems Review of Systems: Twelve point review of systems was reviewed and is negative except as noted in the HPI Exam Narrative: General: Patient resting comfortably in bed, no acute distress HEENT: Atraumatic, normocephalic, mucous membranes moist CV: Regular rate and rhythm, S1, S2, no murmurs rubs or gallops noted Lungs: Clear to auscultation bilaterally, no rales or crackles noted, no wheezes, good air entry Abdomen: Soft, nontender, nondistended Extremities: Normal to inspection, no edema noted Skin: No rashes noted, no lesions or wounds seen Psych: Euthymic, normal affect Objective Data Vital Signs Vital Signs: Vital Signs - 24 hr 10/24/21 16:55 10/24/21 17:00 10/24/21 17:05 Temperature Pulse Rate 116 H 120 H 118 H Respiratory Rate 16 16 18 Blood Pressure 92/75 L 105/70 111/77 Pulse Oximetry 100 95 96 Oxygen Delivery Room Air Room Air Room Air 10/24/21 17:15 10/24/21 17:25 10/24/21 17:35 Temperature 97.4 F L Pulse Rate 110 H 120 H Respiratory Rate 18 14 Blood Pressure 109/86 106/82 Pulse Oximetry 94 96 98 Oxygen Delivery Room Air Room Air Room Air 10/24/21 17:44 10/24/21 18:14 10/24/21 18:52 Temperature 97.9 F 97.9 F Pulse Rate 129 H 138 H 131 H Respiratory Rate 16 16 Blood Pressure 103/86 105/82 Pulse Oximetry 97 98 Oxygen Delivery 10/24/21 18:00 10/24/21 20:00 10/25/21 00:00 Temperature 97.5 F L 97.4 F L Pulse Rate 136 H 135 H 135 H Respiratory Rate 16 16 Blood Pressure 126/89 110/86 Pulse Oximetry 97 96 Oxygen Delivery 10/24/21 20:00 10/25/21 00:00 10/24/21 20:00 Temperature Pulse Rate 129 H Respiratory Rate Blood Pressure Pulse Oximetry Oxygen Delivery Room Air Room Air 10/24/21 22:00 10/25/21 00:00 10/25/21 02:00 Temperature Pulse Rate 142 H 125 H 111 H Respiratory Rate Blood Pressure Pulse Oximetry Oxygen Delivery 10/25/21 04:00 10/25/21 04:00 10/25/21 04:00 Temperature 97.6 F Pulse Rate 116 H 144 H Respiratory Rate 18 Blood Pressure 125/93 H Pulse Oximetry 98 Oxygen Delivery Room Air 10/25/21 06:00 10/25/21 08:03 10/25/21 08:00 Temperature 97.6 F Pulse Rate 128 H 123 H Respiratory Rate 16 Blood Pressure 95/64 L Pulse Oximetry 96 Oxygen Delivery Room Air 10/25/21 08:00 10/25/21 11:14 10/25/21 14:13 Temperature 97.2 F L Pulse Rate 121 H 128 H 152 H Respiratory Rate 16 Blood Pressure 122/93 H Pulse Oximetry 96 Oxygen Delivery 10/25/21 10:00 10/25/21 12:00 10/25/21 14:00 Temperature Pulse Rate 125 H 132 H 130 H Respiratory Rate Blood Pressure Pulse Oximetry Oxygen Delivery 10/25/21 12:00 10/25/21 15:14 Temperature 97.8 F Pulse Rate 105 H Respiratory Rate 20 Blood Pressure 113/78 Pulse Oximetry 96 Oxygen Delivery Room Air Intake/Output Intake/Output: Intake & Output 10/22/21 10/23/21 10/24/21 10/25/21 23:59 23:59 23:59 23:59 Intake Total 1000 2818 3155 Output Total 1075 1100 Balance 1000 6169 2059 Meds/Results Medications: Active Medications Generic Name Dose Route Start Last Admin Trade Name Freq PRN Reason Stop Dose Admin Acetaminophen 500 mg 10/24/21 17:29 Acetaminophen 500 Mg Tablet PO Q6H PRN Mi
[2021-10-25] MEDS: HYDROcodone/acetaminophen (*CRX) 5-325 MG TABLET 1 TAB PO (18:02)
[2021-10-26] VITALS (9 sets, daily range): BP systolic 98–103; BP diastolic 65–74; PULSE 111–126; RESP 16–20; TEMP 36.1–37; O2SAT 95–97
[2021-10-26 08:46] LABS: Basophils Absolute Auto 0.1 K/mm3 (0.0-0.1); Basophils Percent Auto 0.8 % (0.2-1.2); Eosinophils Absolute Auto 0.1 K/mm3 (0-0.3); Eosinophils Percent Auto 0.6 % (0-4.4); Hematocrit 35.8 % (42.0-52.0); Hemoglobin 11.2 g/dL (14.0-18.0); Immature Granulocyte Absolute 0.24 K/mm3 (0.00-0.031); Immature Granulocyte Percent A 1.7 % (0-0.5); Lymphocytes Absolute Auto 1.35 K/mm3 (0.9-3.2); Lymphocytes Percent Auto 9.4 % (18.3-44.2); Mean Corpuscular HGB Conc 31.3 g/dl (32-36); Mean Corpuscular Hemoglobin 23.8 pg (26-34); Mean Corpuscular Volume 76.2 fl (80-100); Mean Platelet Volume 10.4 fl (7.4-10.4); Monocytes Absolute Auto 0.9 K/mm3 (0.1-0.6); Monocytes Percent Auto 6.2 % (2.6-8.5); Neutrophils Absolute Auto 11.7 K/mm3 (1.3-6.7); Neutrophils Percent Auto 81.3 % (45.5-73.1); Platelet Count Result 564 k/mm3 (150-375); Red Cell Distribution Width 20.4 % (11.5-14.5); White Blood Count 14.4 K/mm3 (4.5-10.0)
--- NOTE | 2021-10-26 08:58 | PM.DS ---
DS: Admitting Diagnosis Discharge Date 10/26/2021 Admitting Diagnosis Postoperative rectal bleeding Atrial fibrillation Chronic anticoagulation History transanal excision tubulovillous adenoma 10/18/2019. 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 With the polyp quite large, typical closure was not able to be performed. His Eliquis was held prior to surgery. He was urged observed in the hospital a few days after surgery and was doing well. His Eliquis was restarted the day prior to discharge. Patient was discharged on 10/20/2021. He was home for 3 days and started developing significant rectal bleeding. He came back to the emergency room. It seemed he had stopped. His Eliquis was held after being admitted. Unfortunately the patient continued to have rectal bleeding and was taken back to surgery the day after admission, 10/24/2021, by Dr. Wilson. Rectal exam under anesthesia for control of hemorrhage was performed. One suture was placed for a submucosal area of oozing blood. Some cautery was used on raw surface area. The patient's Eliquis was continued to be held. Following surgery, he really had no further bleeding. He was observed for 48 hours and was having soft regular bowel movements. He was advanced to a low-fiber diet. I should point out that the night of surgery, when having some bloody stools, he had rapid atrial fibrillation and blood pressure is a dropped to the 90s. He was transferred to IMU and given 2 units of packed cells. Hematocrit had dropped but was still 32.2 prior to transfusion. The patient's diltiazem was restarted and he had no more problems with rapid atrial fibrillation. Hospitalist service kindly saw him in consultation and assisted with his management. Patient is very comfortable with no pain. He is discharged today, 10/26/2021 in improved condition. Plan is to hold his Eliquis for a couple of weeks before restarting. Status at Discharge Overall status at discharge: patient is progressing back to baseline Time Spent with Patient Time attestation: Total time spent providing and/or coordinating discharge services: Time spent: Less than 30 minutes Exam Const: General: comfortable and no acute distress Nutritional Appearance: thin GI: Inspection: non-distended GI Palp: Yes Soft to palpation and No Tenderness to palpation present (GI) Rectal Exam: visual inspection normal and No tenderness DS: Data Data Completed and Pending Labs on day of discharge: Labs from last 24 hours 10/26/21 10/26/21 08:22 08:22 WBC 14.4 H RBC 4.70 Hgb 11.2 L Hct 35.8 L MCV 76.2 L MCH 23.8 L MCHC 31.3 L RDW 20.4 H Plt Count 564 H MPV 10.4 Immature Gran % (Auto) 1.7 H Neut % (Auto) 81.3 H Lymph % (Auto) 9.4 L [place] % (Auto) 6.2 Eos % (Auto) 0.6 Baso % (Auto) 0.8 Lymph # (Auto) 1.35 [place] # (Auto) 0.9 H Eos # (Auto) 0.1 Baso # (Auto) 0.1 Abs Immat Gran (auto) 0.24 H Absolute Neuts (auto) 11.7 H Absolute Nucleated RBC 0.0 Nucleated RBC % 0.0 Sodium Pending Potassium Pending Chloride Pending Carbon Dioxide Pending Anion Gap Pending BUN Pending Creatinine Pending Estim Creat Clear Calc Pending Estimated GFR Pending Glucose Pending Calcium Pending Total Bilirubin Pending
[2021-10-26 09:00] LABS: Alanine Aminotransferase 11 U/L (6-50); Alkaline Phosphatase 72 U/L (38-126); Anion Gap 3 mmol/L (8-16); Aspartate Amino Transferase 20 U/L (17-59); Blood Urea Nitrogen 15 mg/dL (9-20); Calcium 7.9 mg/dL (8.4-10.2); Carbon Dioxide 29 mmol/L (22-30); Chloride 102 mmol/L (98-107); Estimated CRCL calculation 53 ml/min; Estimated Glomerular Filt Rate > 60; Glucose 92 mg/dL (65-110); Potassium 3.9 mmol/L (3.4-5.0); Sodium 134 mmol/L (137-145)
[2021-10-26] MEDS: dilTIAZem HCL CD 180 MG CAP.ER.24H PO (09:03)
[2021-10-26] MEDS: CYANOCOBALAMIN 1,000 MCG TABLET 1000 MCG PO (09:03)
[2021-10-26] MEDS: lisinopriL 20 MG TABLET 40 MG PO (09:03)
[2021-10-26] MEDS: FAMOTIDINE 20 MG/2 ML VIAL IV PUSH (09:03)
[2021-10-26] MEDS: METOPROLOL TARTRATE 50 MG TAB PO (09:03)
[2021-10-26] MEDS: MEMANTINE 10 MG TABLET PO (09:03)
[2021-10-26] MEDS: DONEPEZIL HCL 10 MG TABLET PO (09:03)
--- NOTE | 2021-10-26 11:53 | PCNFU ---
Nutrition Follow-Up Complete: Inadequate oral intake related to colon cancer diagnosis as evidenced by 27lb reduction of usual body weight of 180lbs to current weight of 153lbs. Goal: Eating 75% or more of meals once on PO diet with Ensure Enlive BID (350kcal, 20gm pro each) with meals. - Pt is meeting oral intake goal but is only drinking 1 Ensure Enlive a day. Continue current goal. Pt current nutrition is Low fiber low residue. Last recorded weight is 69.5 kg, no new wt changes recorded. Bowel Motility: +BM on 10/26 Labs Reviewed: Hgb 11.2, Hct 35.8, Alb 3.0, Na 134 Meds Noted: Zofran, B12, B complex, Cardizem Cd, Skin: WNL except Dry,tight Additional Notes: Pt has recently transitioned to to a PO lowfiber/low residue diet. Pt has ate 100% of his last 2 PO meals and refused one. He reports drinking one Ensure Enlive (350kcal, 20gm pro each) with his dinner because drinking two makes him have to use the restroom. Monitor oral intake of meals with supplements, changes in wt, and labs every 5 days
--- NOTE | 2021-10-26 13:40 | PCNSR ---
On 10/26/21, the student, Hannah Simms, provided care and completed [facility] documentation on this patient. I have reviewed the student's documentation and agree with the findings.
== END 2021-10-26 15:47 | disposition home or self-care (01) | DRG 920 ==
LOC: ANHED 19:19 → ANH2MED 21:43 → ANHIMU 10-24 03:02
PROVIDERS: Student in an Organized Health Care Education/Training Program; Admitting Provider Surgery; Emergency Provider Family Medicine; PCP Surgery; Visit Provider Surgery
PROC: 0W3P8ZZ Control Bleeding in Gastrointestinal Tract, Via Natural or Artificial Opening Endoscopic (ICD-10-PCS; principal; 2021-10-24 16:30)
DX: K91.840 Postprocedural hemorrhage of a digestive system organ or structure following a digestive system procedure (principal); I48.20 Chronic atrial fibrillation, unspecified; D62 Acute posthemorrhagic anemia; F03.90 Unspecified dementia, unspecified severity, without behavioral disturbance, psychotic disturbance, mood disturbance, and anxiety; I10 Essential (primary) hypertension; E78.5 Hyperlipidemia, unspecified; Z79.01 Long term (current) use of anticoagulants; Z95.2 Presence of prosthetic heart valve; Z95.1 Presence of aortocoronary bypass graft; Z85.038 Personal history of other malignant neoplasm of large intestine; Z87.891 Personal history of nicotine dependence
CPT/HCPCS: 36415; 36430; 80048; 80053; 85014; 85018; 85025; 85027; 85610; 85730; 86850; 86900; 86901; 86920; 96361; 99285; A9270; C9290; J0330; J1100; J2405; J2704; J7030; J7050; J7120; J7168; P9016

== ENCOUNTER 2021-11-12 10:11 | Outpatient (CLI) | payer MEDICARE, SELFPAY ==
[2021-11-12 10:42] LABS: Basophils Absolute Auto 0.2 K/mm3 (0.0-0.1); Basophils Percent Auto 1.2 % (0.2-1.2); Eosinophils Absolute Auto 0.2 K/mm3 (0-0.3); Eosinophils Percent Auto 1.6 % (0-4.4); Hematocrit 38.5 % (42.0-52.0); Hemoglobin 11.4 g/dL (14.0-18.0); Immature Granulocyte Absolute 0.08 K/mm3 (0.00-0.031); Immature Granulocyte Percent A 0.6 % (0-0.5); Lymphocytes Absolute Auto 1.34 K/mm3 (0.9-3.2); Lymphocytes Percent Auto 9.7 % (18.3-44.2); Mean Corpuscular HGB Conc 29.6 g/dl (32-36); Mean Corpuscular Hemoglobin 22.8 pg (26-34); Mean Platelet Volume 10.4 fl (7.4-10.4); Monocytes Absolute Auto 0.9 K/mm3 (0.1-0.6); Monocytes Percent Auto 6.8 % (2.6-8.5); Neutrophils Percent Auto 80.1 % (45.5-73.1); Platelet Count Result 512 k/mm3 (150-375); Red Cell Distribution Width 19.7 % (11.5-14.5); White Blood Count 13.8 K/mm3 (4.5-10.0)
[2021-11-12 10:50] LABS: Hypochromasia 1+ (NORMAL); Ovalocytes 1+ (NORMAL); Platelet Estimate Increased (Adequate); Poikilocytosis 1+ (NORMAL)
[2021-11-12 19:30] LABS: Alanine Aminotransferase 15 U/L (6-50); Albumin Level 3.9 g/dL (3.5-5.1); Alkaline Phosphatase 98 U/L (38-126); Anion Gap 8 mmol/L (8-16); Aspartate Amino Transferase 25 U/L (17-59); Bilirubin,Total 1.3 mg/dL (0.2-1.3); Blood Urea Nitrogen 17 mg/dL (9-20); Calcium 8.9 mg/dL (8.4-10.2); Carbon Dioxide 23 mmol/L (22-30); Chloride 102 mmol/L (98-107); Estimated Glomerular Filt Rate > 60; Glucose 92 mg/dL (65-110); Potassium 4.8 mmol/L (3.4-5.0); Sodium 133 mmol/L (137-145)
[2021-11-12 19:54] LABS: Carcinoembryonic Antigen 1.8 ng/mL (0.0-3.0)
== END 2021-11-12 10:12 | disposition home or self-care (01) ==
PROVIDERS: PCP Surgery; Visit Provider Internal Medicine Hematology & Oncology
DX: D62 Acute posthemorrhagic anemia (principal); C18.4 Malignant neoplasm of transverse colon
CPT/HCPCS: 36415; 80053; 82378; 85025